=== PATIENT | female | born 1945 | race Caucasian/White ===

== ENCOUNTER 2017-05-07 18:22 | Emergency (ER) | payer OTHER ==
[2017-05-07 19:11] LABS: Absolute Lymphocytes (CBC) 0.5 K/uL (0.7-4.9); Absolute Monocytes 0.2 K/uL (0.1-1.3); Absolute Neutrophil 4.5 K/uL (1.8-8.0); Basophils % 0.3 % (0-1.3); Eosinophils % 3.7 % (0-4.4); Hematocrit 25.6 % (36.0-45.0); Lymphocytes % 8.8 % (15.3-44.8); MCH 21.8 pg (27.0-35.0); MCV 75.3 fL (80-100); MPV 8.7 fL (7.6-11.3)
[2017-05-07 19:24] LABS: Albumin 3.1 g/dL (3.2-5.5); Bilirubin Total 0.3 mg/dL (0.3-1.2); Protein, Total 6.5 g/dL (6.0-8.3)
[2017-05-07 19:47] LABS: Anisocytosis 2+; Blood Morphology Comment NOTED (NOT SEEN); Hypochromasia 1+; Platelet Estimate ADEQ; Rouleau NOTED; Urine White Blood Cell Casts OK
[2017-05-07] MEDS ORDERED: LIDOCAINE 1% MPF 5 ML VIAL ONE (20:03)
--- NOTE | 2017-05-07 20:18 | ER ---
Nurse's Notes [facility] Name: Dior Rao Age: 71 yrs Sex: Female : 1945 Arrival Date: 05/07/2017 Time: 18:23 Bed 8 Private MD: Diagnosis: Laceration of extensor muscle, fascia and tendon of other and unspecified finger at wrist and hand level Presentation: 05/07 18:34 Presenting complaint: Patient states: I may have had a seizure at home. My last one was lk1 April 11 here in the hospital. I have a cut on my left hand. Transition of care: patient was not received from another setting of care. Complicating Factors: There are no complicating factors for this patient. Onset of symptoms was May 07, 2017 at 17:45. Care prior to arrival: None. 18:34 Method Of Arrival: Ambulatory lk1 18:34 Acuity: JAMAR 3 lk1 Triage Assessment: 18:35 General: Appears in no apparent distress. Behavior is calm, cooperative, appropriate lk1 for age. Pain: Complains of pain in left hand Pain currently is 6 out of 10 on a pain scale. Historical: - Allergies: 18:35 Codeine; lk1 18:35 Fentanyl; lk1 18:35 Morphine; lk1 18:35 PENICILLINS; lk1 18:35 Phenergan; lk1 18:35 Demerol; lk1 - PMHx: 18:35 Anemia; COPD; Lupus; osteoarthritis; Pancreatitis; Pneumonia; Seizures; status lk1 epilepticus; - Immunization history:: Adult Immunizations up to date. - Social history:: Smoking status: Patient/guardian denies using tobacco. Screenin:40 Abuse screen: Denies threats or abuse. Denies injuries from another. Nutritional hb screening: No deficits noted. Tuberculosis screening: No symptoms or risk factors identified. Fall Risk Total Bowie Fall Scale indicates Low Risk Score (25-44 pts). Fall prevention measures have been instituted. Side Rails Up X 2 Frequent Obs/Assesments occuring Family Present and informed to notify staff if they need to leave bedside As available Patient and Family Educated on Fall Prevention Program and strategies. Assessment: 18:39 General: Appears in no apparent distress. Behavior is calm, cooperative. Pain: Pain hb currently is 2 out of 10 on a pain scale. Neuro: Level of Consciousness is awake, alert, obeys commands, Oriented to person, place, time, situation. Cardiovascular: Capillary refill < 3 seconds Patient's skin is warm and dry. Respiratory: Airway is patent Respiratory effort is even, unlabored, Respiratory pattern is regular, symmetrical, Breath sounds are clear bilaterally. GI: No signs and/or symptoms were reported involving the gastrointestinal system. : No signs and/or symptoms were reported regarding the genitourinary system. EENT: No signs and/or symptoms were reported regarding the EENT system. Derm: Skin is pink, warm \T\ dry. Musculoskeletal: Capillary refill < 3 seconds. Injury Description: Laceration sustained to left hand is clean, 0.5 to 2.5 cm long, not bleeding, was sustained 30-60 minutes ago. is bleeding a small amount. 19:35 Reassessment: No changes from previously documented assessment. Patient and/or family bb updated on plan of care and expected duration. Pain level reassessed. Patient is alert, oriented x 3, equal unlabored respirations, skin warm/dry/pink. pt resting quietly wet dressing in place to right hand. 20:29 Reassessment: Patient appears in no apparent distress at this time. Patient is alert, aa1 oriented x 3, equal unlabored respirations, skin warm/dry/pink. Discussed d/c \T\ f/u instructions with pt; denies questions or concerns at this time Patient denies pain at this time. Patient states feeling better. Vital Signs: 18:35 BP 170 / 87; Pulse 89; Resp 14; Temp 97.8(TE); Pulse Ox 96% on R/A; Weight 47.63 kg lk1 (R); Height 5 ft. 1 in. (154.94 cm) (R); Pain 6/10; 19:36 BP 201 / 86; Pulse 81; Resp 18 S; Pulse Ox 95% on R/A; bb 20:29 BP 188 / 82; Pulse 79; Resp 18; Pulse Ox 96% on R/A; Pain 0/10; aa1 18:35 Body Mass Index 19.84 (47.63 kg, 154.94 cm) lk1 ED Course: 18:23 Patient arrived in ED. as 18:35 Triage completed. lk1 18:36 Arm band placed on right wrist. lk1 18:39 Apple De Souza, RN is Primary Nurse. hb 18:41 Patient has correct armband on for positive identification. Bed in low position. Call hb light in reach. Side rails up X 1. 18:47 Rashi Parra MD is Attending Physician. tw4 19:02 Inserted saline lock: 20 gauge in right antecubital area, using aseptic technique. hb Blood collected. 19:23 Notified ED physician of a critical lab result(s). hgb of 7.4. fc 20:19 Dressings: Adaptic X 1; left hand 4X4s X 1; left hand. cc 20:20 CMP Sent. cc 20:20 CBC with Diff Sent. cc 20:29 No provider procedures requiring assistance completed. IV discontinued, intact, aa1 bleeding controlled, No redness/swelling at site. Pressure dressing applied. Administered Medications: 20:21 Drug: Potassium Chloride 40 mEq Route: PO; aa1 20:29 Follow up: Response: No adverse reaction; Medication administered at discharge. aa1 Outcome: 20:18 Discharge ordered by . tw4 20:29 Discharged to home via wheelchair, with significant other. aa1 20:29 Condition: good 20:29 Discharge instructions given to patient, significant other, Instructed on discharge instructions, follow up and referral plans. medication usage, Demonstrated understanding of instructions, follow-up care, medications, Prescriptions given X 1. 20:33 Patient left the ED. aa1 Signatures: Connie Bernstein RN RN aa1 Shala Melissa RN RN fc Martinez, Amelia as Liliam Sellers RN RN Melany Lee cc Iris Farmer RN RN [facility] Apple De Souza, Rashi Friedman RN, MD MD tw4
--- NOTE | 2017-05-07 20:18 | EDPHYS ---
Physician Documentation [facility] Name: Dior Rao Age: 71 yrs Sex: Female : 1945 Arrival Date: 05/07/2017 Time: 18:23 Bed 8 Private MD: ED Physician Rashi Parra HPI: 05/07 19:37 This 71 yrs old Female presents to ER via Ambulatory with complaints of tw4 Laceration To Hand. 19:37 The patient has a laceration related to: possible seizure occurred at home, and there tw4 are no complicating factors. The laceration(s) is(are) located on the dorsum of left hand. Onset: The symptoms/episode began/occurred today. Associated signs and symptoms: The patient has no apparent associated signs or symptoms. The patient has not experienced similar symptoms in the past. Historical: - Allergies: 18:35 Codeine; lk1 18:35 Fentanyl; lk1 18:35 Morphine; lk1 18:35 PENICILLINS; lk1 18:35 Phenergan; lk1 18:35 Demerol; lk1 - PMHx: 18:35 Anemia; COPD; Lupus; osteoarthritis; Pancreatitis; Pneumonia; Seizures; status lk1 epilepticus; - Immunization history:: Adult Immunizations up to date. - Social history:: Smoking status: Patient/guardian denies using tobacco. ROS: 19:37 Constitutional: Negative for fever, chills, and weight loss, Cardiovascular: Negative tw4 for chest pain, palpitations, and edema, Respiratory: Negative for shortness of breath, cough, wheezing, and pleuritic chest pain, Abdomen/GI: Negative for abdominal pain, nausea, vomiting, diarrhea, and constipation, Back: Negative for injury and pain. 19:37 MS/extremity: Positive for injury or acute deformity, laceration, Negative for abrasion, bite, contusion, decreased range of motion, puncture, rash, swelling, tenderness, tingling. Exam: 19:39 Constitutional: This is a well developed, well nourished patient who is awake, alert, tw4 and in no acute distress. Head/Face: Normocephalic, atraumatic. Chest/axilla: Normal chest wall appearance and motion. Nontender with no deformity. No lesions are appreciated. Cardiovascular: Regular rate and rhythm with a normal S1 and S2. No gallops, murmurs, or rubs. Normal PMI, no JVD. No pulse deficits. Respiratory: Lungs have equal breath sounds bilaterally, clear to auscultation and percussion. No rales, rhonchi or wheezes noted. No increased work of breathing, no retractions or nasal flaring. 19:39 Musculoskeletal/extremity: Extremities: noted in the dorsum of left hand: laceration, ROM: full active range of motion, full passive range of motion, limited active range of motion, Circulation is intact in all extremities. Vital Signs: 18:35 BP 170 / 87; Pulse 89; Resp 14; Temp 97.8(TE); Pulse Ox 96% on R/A; Weight 47.63 kg lk1 (R); Height 5 ft. 1 in. (154.94 cm) (R); Pain 6/10; 19:36 BP 201 / 86; Pulse 81; Resp 18 S; Pulse Ox 95% on R/A; bb 20:29 BP 188 / 82; Pulse 79; Resp 18; Pulse Ox 96% on R/A; Pain 0/10; aa1 18:35 Body Mass Index 19.84 (47.63 kg, 154.94 cm) lk1 Laceration: 20:10 Wound Repair of 3.0cm ( 1.2in ) subcutaneous laceration to dorsum of left hand. Distal tw4 neuro/vascular/tendon intact. Anesthesia: Local anesthetic administered with 2 mls of 1% lidocaine. Wound prep: Simple cleansing with betadine by nurse. Skin closed with 4-0 Prolene using interrupted sutures and sterile technique. Dressed with non-adherent dressing. Patient tolerated well. MDM: 18:47 Patient medically screened. tw4 19:39 Differential diagnosis: superficial laceration, tendon injury, vascular injury. Data tw4 reviewed: vital signs, nurses notes. Counseling: I had a detailed discussion with the patient and/or guardian regarding: the historical points, exam findings, and any diagnostic results supporting the discharge/admit diagnosis. 04 18:47 Order name: CBC with Diff tw4 05/07 18:47 Order name: CMP tw4 05/07 18:48 Order name: CBC with Automated Diff; Complete Time: 20:12 EDMS 05/07 18:48 Order name: Comprehensive Metabolic Panel; Complete Time: 20:12 EDMS 05/07 19:23 Order name: CBC Smear Scan; Complete Time: 20:12 [facility] 05/07 18:47 Order name: Saline Lock; Complete Time: 19:02 tw4 05/07 19:21 Order name: Dressing - Wound; Complete Time: 20:18 tw4 05/07 19:21 Order name: Gloves, Sterile; Complete Time: 19:47 tw4 05/07 19:21 Order name: Setup Suture Tray; Complete Time: 19:47 tw4 Administered Medications: 20:21 Drug: Potassium Chloride 40 mEq Route: PO; aa1 20:29 Follow up: Response: No adverse reaction; Medication administered at discharge. aa1 Disposition: 05/07/17 20:18 Discharged to Home. Impression: Laceration of extensor muscle, fascia and tendon of other and unspecified finger at wrist and hand level. - Condition is Stable. - Discharge Instructions: Laceration Care, Adult, [id number], Seizure Disorder, Child, Generalized Tonic-Clonic, Hypokalemia. - Prescriptions for Potassium Chloride 20 meq Oral Packet - take 1 packet by ORAL route once daily 1 packet in 6 (six) ounces of water or juice; Take after meal; 10 packet. - Medication Reconciliation Form, Thank You Letter, Antibiotic Education, Prescription Opioid Use form. - Follow up: Private Physician; When: As needed; Reason: Recheck today's complaints, Continuance of care, Re-evaluation by your physician. - Problem is an ongoing problem. - Symptoms have improved. Signatures: Dispatcher [employer] Connie Abbott, RN RN aa1 Iris Farmer RN RN lk1 Rashi Parra MD MD tw4
[2017-05-07] MEDS ORDERED: POTASSIUM CL SA 10 MEQ TAB PO ONE (20:38)
[2017-05-07 20:41] VITALS: TEMP 97.8
[2017-05-07 20:43] VITALS: BP 188/82; O2SAT 96
== END 2017-05-07 20:33 | disposition home or self-care (01) ==
LOC: ER 18:22
PROC: 0JQK0ZZ Repair Left Hand Subcutaneous Tissue and Fascia, Open Approach (ICD-10-PCS; principal; 2017-05-07)
DX: S66.328A Laceration of extensor muscle, fascia and tendon of other finger at wrist and hand level, initial encounter (principal); G40.909 Epilepsy, unspecified, not intractable, without status epilepticus; Z88.0 Allergy status to penicillin; Z88.5 Allergy status to narcotic agent; Z88.8 Allergy status to other drugs, medicaments and biological substances
CPT/HCPCS: 36415; 80053; 85025; 99284

== ENCOUNTER 2017-07-18 11:53 | Emergency (ER) | payer OTHER ==
--- OUTSIDE RECORDS SUMMARY | 2017-07-18 11:55 | XMS REPORT ---
:1945 Author Organization eClinicalWorks Care Team Providers Name Role Phone KahnKendall Provider Role Unavailable Allergies No Known Allergies Problems Problem Type Condition Code Onset Dates Condition Status Problem Lupus (systemic lupus M32.9 Active erythematosus) Problem Chronic back pain M54.9 Active Problem Degenerative joint disease M19.90 Active Problem COPD (chronic obstructive pulmonary J44.9 Active disease) Assessment COPD (chronic obstructive pulmonary J44.9 Active disease) Problem Rheumatoid arthritis M06.9 Active Assessment Chronic back pain M54.9 Active Assessment Osteoarthritis of multiple joints M15.9 Active Problem Hypertension I10 Active Problem Seizures R56.9 Active Problem Degeneration of lumbar or M51.37 Active lumbosacral intervertebral disc Problem Insomnia G47.00 Active Problem Chronic pancreatitis K86.1 Active Assessment CREST syndrome M34.1 Active Assessment Seizures R56.9 Active Assessment Anemia, chronic disease D63.8 Active Assessment Hypertension I10 Active Problem Rotator cuff tear arthropathy M12.819 Active Problem Osteoarthritis of multiple joints M15.9 Active Problem CREST syndrome M34.1 Active Problem Anxiety and depression F41.9 Active Assessment Rheumatoid arthritis M06.9 Active Problem Malabsorption syndrome K90.9 Active Problem Anemia, chronic disease D63.8 Active Medications Medication Code Code Instructions Start End Status Dosage System Date Date Creon [facility] 07885807731 6000 UNIT Active not Orally defined Zofran ND 33444306011 4 MG Orally Active not defined Alprazolam ND 73986140996 1 MG Orally Active 1 tablet Twice a day Ziac ND 13346014762 5-6.25 MG Active 1 tablet Orally Once a day Viberzi ND 64659687425 75 MG Orally Active 1 tablet Twice a day with food Zoloft ND 93063180294 100 MG Orally Active 1 tablet Once a day Zanaflex ND 34865886800 4 MG Orally Active 1 tablet Three times a as needed day Creon 5 NDC 0 Active not defined [place] [facility] 56957429487 10-325 MG Active 1 tablet Orally every 6 as needed hrs Doxycycline [facility] 58712465898 100 MG Orally Active 1 tablet Hyclate every 12 hrs Oxcarbazepine ND 34714893393 600 MG Orally Active 1 tablet Twice a day Keppra [facility] 33884109269 750 MG Orally Active 1 tablet Twice a day Folic Acid ND 93985518474 1 MG Orally Active 1 tablet Once a day Restoril ND 41776966807 30 MG Orally Active 1 capsule Once a day at bedtime as needed Anacin [facility] 22063913796 400-32 MG Active not Orally defined Trileptal [facility] 67948505446 600 MG Orally Active 1 tablet Twice a day Neurontin ND 10133909125 300 MG Orally Active 1 capsule Once a day before bedtime Diovan HCT [facility] 19576630491 80-12.5 MG Inactive 1 tablet Orally Once a day Amlodipine ND 99490691965 10 MG Orally Active 1 tablet Besylate Once a day Protonix [facility] 39467512933 20 MG Orally Active 1 tablet Once a day Ultram [facility] 74563226011 50 MG Orally Active 1 tablet every 6 hrs as needed Plaquenil ND 31869621889 200 MG Orally Active 1 tablet Once a day with food or milk Reglan [facility] 97578488985 5 MG Orally Active not defined Vimpat [facility] 40720764789 50 MG Orally Active 1 tablet Twice a day Methotrexate ND 41340375987 2.5 MG Orally Active not defined Results No Known Results Summary Purpose eClinicalWorks Submission
--- OUTSIDE RECORDS SUMMARY | 2017-07-18 11:55 | XMS REPORT ---
:1945 Author Organization eClinicalWorks Care Team Providers Name Role Phone KahnKendall Provider Role Unavailable Allergies No Known Allergies Problems Problem Type Condition Code Onset Dates Condition Status Problem Lupus (systemic lupus M32.9 Active erythematosus) Problem Chronic back pain M54.9 Active Problem Degenerative joint disease M19.90 Active Problem COPD (chronic obstructive pulmonary J44.9 Active disease) Assessment Seizures R56.9 Active Problem Rheumatoid arthritis M06.9 Active Assessment Chronic back pain M54.9 Active Assessment Osteoarthritis of multiple joints M15.9 Active Problem Hypertension I10 Active Problem Seizures R56.9 Active Problem Degeneration of lumbar or M51.37 Active lumbosacral intervertebral disc Problem Insomnia G47.00 Active Problem Chronic pancreatitis K86.1 Active Assessment Anemia, chronic disease D63.8 Active Assessment Hypertension I10 Active Assessment CREST syndrome M34.1 Active Assessment COPD (chronic obstructive pulmonary J44.9 Active disease) Problem Rotator cuff tear arthropathy M12.819 Active Problem Osteoarthritis of multiple joints M15.9 Active Problem CREST syndrome M34.1 Active Problem Anxiety and depression F41.9 Active Assessment Rheumatoid arthritis M06.9 Active Problem Malabsorption syndrome K90.9 Active Problem Anemia, chronic disease D63.8 Active Medications Medication Code Code Instructions Start End Status Dosage System Date Date Amlodipine ND 43785363293 10 MG Orally Active 1 tablet Besylate Once a day Zoloft ND 55879868470 100 MG Orally Active 1 tablet Once a day Alprazolam ND 82949857447 1 MG Orally Active 1 tablet Twice a day Creon ND 23130113477 6000 UNIT Active not Orally defined Ultram ND 62982612579 50 MG Orally Active 1 tablet every 6 hrs as needed Methotrexate ND 76126458533 2.5 MG Orally Active not defined Neurontin ND 20183983748 300 MG Orally Active 1 capsule Once a day before bedtime Viberzi [facility] 53729099599 75 MG Orally Active 1 tablet Twice a day with food Anacin [facility] 63961103633 400-32 MG Active not Orally defined Plaquenil ND 54459037325 200 MG Orally Active 1 tablet Once a day with food or milk Zofran [facility] 89850750223 4 MG Orally Active not defined Oxcarbazepine ND 51318377329 600 MG Orally Active 1 tablet Twice a day Keppra ND 96034353881 750 MG Orally Active 1 tablet Twice a day Zanaflex ND 91248969127 4 MG Orally Active 1 tablet Three times a as needed day Protonix [facility] 34624590402 20 MG Orally Active 1 tablet Once a day Ziac [facility] 88678387873 5-6.25 MG Active 1 tablet Orally Once a day Restoril ND 40812539296 30 MG Orally Active 1 capsule Once a day at bedtime as needed Folic Acid ND 79721816336 1 MG Orally Active 1 tablet Once a day Vimpat ND 27394741705 50 MG Orally Active 1 tablet Twice a day Creon 5 NDC 0 Active not defined Doxycycline [facility] 58947700110 100 MG Orally Active 1 tablet Hyclate every 12 hrs Reglan [facility] 18499199676 5 MG Orally Active not defined [place] [facility] 47182489702 10-325 MG Active 1 tablet Orally every 6 as needed hrs Results No Known Results Summary Purpose eClinicalWorks Submission
--- OUTSIDE RECORDS SUMMARY | 2017-07-18 11:55 | XMS REPORT ---
:1945 Author Organization eClinicalWorks Care Team Providers Name Role Phone Kendall Kahn Provider Role Unavailable Allergies No Known Allergies Problems Problem Type Condition Code Onset Dates Condition Status Problem Lupus (systemic lupus M32.9 Active erythematosus) Problem Chronic back pain M54.9 Active Problem Degenerative joint disease M19.90 Active Problem COPD (chronic obstructive pulmonary J44.9 Active disease) Problem Rheumatoid arthritis M06.9 Active Problem Hypertension I10 Active Problem Seizures R56.9 Active Problem Degeneration of lumbar or M51.37 Active lumbosacral intervertebral disc Problem Insomnia G47.00 Active Problem Chronic pancreatitis K86.1 Active Assessment Acute pain of left shoulder M25.512 Active Assessment Rotator cuff tear arthropathy M12.819 Active Problem Rotator cuff tear arthropathy M12.819 Active Problem Osteoarthritis of multiple joints M15.9 Active Problem CREST syndrome M34.1 Active Problem Anxiety and depression F41.9 Active Problem Malabsorption syndrome K90.9 Active Problem Anemia, chronic disease D63.8 Active Medications No Known Medications Results No Known Results Summary Purpose eClinicalWorks Submission
--- NOTE | 2017-07-18 13:06 | RAD REPORT ---
EXAM DESCRIPTION: CT - C Spine Wo Con - 07/18/2017 12:46 pm CLINICAL HISTORY: Persistent neck pain following fall 3 days earlier COMPARISON: CT trauma study May 2016 TECHNIQUE: Axial 2 mm thick images of the cervical spine were obtained with sagittal and coronal rec onstruction images generated and reviewed. All CT scans are performed using dose optimization technique as appropriate and may include automated exposure control or mA/KV adjustment according to patient size. FINDINGS: Cervical bodies C1-C6 are normal in height. No underlying subluxation abnormality. C5-6 de generative mineralization of the disc space. There is slight loss in disc height. The 20% wedge compr ession of C7 is similar to the examination from 1 year earlier. Posterior wall height is preserved. N o new finding from the prior study. Mastoid air cells are clear. No skull base fracture. Dense arterial tree calcifications are present. No gross deformity of the C1 ring. There is slight cortical irregularity at the posterior arch latera l mass junction on the left. Fracture at this site is not confirmed. C2 is fractured. There is a coronal oblique fracture plane that extends from the posterior body dens junction anterior and inferior. Dens is displaced 1 millimeter anterior relative to the body of C2. N o pathologic component. Prominent degenerative change with mineralization of the transverse ligament noted posterior to the dens. The dens anterior arch C1 degenerative changes are present. The C3-C6 levels show no identifiable fracture. Borderline or mild right foraminal stenosis at C3-4. Prominent bilateral facet degenerative change at C4-5 causing mild foraminal stenosis. Patient has ve ry severe left facet degenerative change at C5-6 and on the right at C6-7. These levels both have for aminal encroachment. No paraspinal mass or hematoma. Central canal detail is inherently limited on CT imaging. Bilateral carotid calcifications are presen t. No suspicious soft tissue mass. Findings telephoned to the referring clinician 12:58 p.m. IMPRESSION: C2 fracture. Coronal oblique fracture plane extends from the posterior dens body junctio n anteriorly and inferiorly into the body. There is 1 millimeter anterior subluxation of the dens rel ative to the body of C2. Slight cortical irregularity along the lateral mass posterior arch C1 junction. This is not definitiv e for fracture. C7 20% wedge compression deformity stable back to at least May 2016. Degenerative changes throughout the cervical spine not causing central spinal stenosis. There is mult ilevel foraminal stenosis.
[2017-07-18] MEDS ORDERED: HYDROMORPHONE HCL 1 MG/ML INJ ONE ×2 (13:18→14:30)
[2017-07-18] MEDS ORDERED: NA CHLORIDE 0.9% 1,000 ML ONE (13:19)
[2017-07-18 13:45] LABS: Potassium 3.4 mEq/L (3.6-5.0)
[2017-07-18 13:47] LABS: Absolute Lymphocytes (CBC) 0.5 K/uL (0.7-4.9); Absolute Monocytes 0.4 K/uL (0.1-1.3); Absolute Neutrophil 5.2 K/uL (1.8-8.0); Basophils % 0.8 % (0-1.3); Hematocrit 42.7 % (36.0-45.0); Lymphocytes % 8.4 % (15.3-44.8); MCH 29.4 pg (27.0-35.0); MCV 92.5 fL (80-100); MPV 9.2 fL (7.6-11.3); Monocytes % 6.2 % (3.3-12.3); RBC Red Blood Cell Count 4.62 M/uL (3.86-4.86)
--- NOTE | 2017-07-18 14:09 | EDPHYS ---
Physician Documentation [facility] Name: Dior Rao Age: 71 yrs Sex: Female : 1945 Arrival Date: 07/18/2017 Time: 11:55 Bed 19 Private MD: Femi [facility] ED Physician Tommy Colon HPI: 07/18 12:15 This 71 yrs old Female presents to ER via Wheelchair with complaints of Neck kav Pain, >24Hrs Old. 12:25 The patient or guardian complains of pain, that is acute. The symptoms are located on kav the occipital area and base of the skull. Onset: The symptoms/episode began/occurred acutely, 2 day(s) ago. Context: The problem was sustained at home, The neck injury/problem resulted from patient reports that she had an unwitnessed seizure approximately 2 days ago and hit the back of her head. her reports finding her on the floor and reports no LOC. Associated signs and symptoms: Pertinent positives: Pertinent negatives: fever, headache, nausea, vomiting. The pain does not radiate. Modifying factors: The symptoms are alleviated by nothing. the symptoms are aggravated by movement. Severity of symptoms: At their worst the symptoms were moderate, just prior to arrival. The patient has not experienced similar symptoms in the past. The patient has not recently seen a physician. 13:26 c/o pain at xiphoid process r/t fall 2 days ago? no bruising noted at site. kav Historical: - Allergies: 11:59 Codeine; aj 11:59 Demerol; aj 11:59 Fentanyl; aj 11:59 Morphine; aj 11:59 PENICILLINS; aj 11:59 Phenergan; aj - Home Meds: 11:59 amlodipine 10 mg tab 1 tab once daily [Active]; folic acid 1 mg Oral tab once daily aj [Active]; hydroxychloroquine 200 mg Oral tab 2 times per day [Active]; methotrexate sodium 25 mg/mL injection soln 0.4 mL once wkly [Active]; pantoprazole 40 mg Oral TbEC 1 tab once daily [Active]; prednisone 1 mg Oral tab 2 tabs once daily [Active]; valsartan 40 mg Oral tab once daily [Active]; 13:35 Lyons 7.5-325 mg oral tab 1 tab every 6 hours for Pain [Active]; Restoril Oral nightly tw2 [Active]; Vimpat 100 mg oral tab 1 tab 2 times per day [Active]; Keppra 750 mg Oral tab 1 tab 2 times per day [Active]; Xanax Oral 1 tab at night for Anxiety [Active]; Creon 36,000-114,000- 180,000 unit oral cpDR 1 cap 3 times per day [Active]; - PMHx: 11:59 Anemia; Lupus; osteoarthritis; Pancreatitis; Pneumonia; Seizures; aj 13:35 scardoma; raynaud disease; status epilepticus; tw2 - PSHx: 11:59 None; aj - Immunization history:: Adult Immunizations up to date. - Social history:: Smoking status: Patient/guardian denies using tobacco. - Ebola Screening: : Patient negative for fever greater than or equal to 101.5 degrees Fahrenheit, and additional compatible Ebola Virus Disease symptoms Patient denies exposure to infectious person Patient denies travel to an Ebola-affected area in the 21 days before illness onset No symptoms or risks identified at this time. - Family history:: not pertinent. - Hospitalizations: : No recent hospitalization is reported. - History obtained from: . ROS: 12:28 Constitutional: Negative for fever, chills, and weight loss, Eyes: Negative for injury, kav pain, redness, and discharge, ENT: Negative for injury, pain, and discharge, Neck: Negative for injury, pain, and swelling, Cardiovascular: Negative for chest pain, palpitations, and edema, Respiratory: Negative for shortness of breath, cough, wheezing, and pleuritic chest pain, Abdomen/GI: Negative for abdominal pain, nausea, vomiting, diarrhea, and constipation, Back: Negative for injury and pain, Skin: Negative for injury, rash, and discoloration, Neuro: Negative for headache, weakness, numbness, tingling, and seizure, Psych: Negative for depression, anxiety, suicide ideation, homicidal ideation, and hallucinations, Allergy/Immunology: Negative for hives, rash, and allergies, Endocrine: Negative for neck swelling, polydipsia, polyuria, polyphagia, and marked weight changes, Hematologic/Lymphatic: Negative for swollen nodes, abnormal bleeding, and unusual bruising. 12:28 MS/extremity: Positive for pain, of the occipital area and base of the skull. 13:34 Neck: Positive for pain with movement, pain at rest, bony tenderness, of the base of kav the skull. Exam: 12:28 Constitutional: This is a well developed, well nourished patient who is awake, alert, kav and in no acute distress. Eyes: Pupils equal round and reactive to light, extra-ocular motions intact. Lids and lashes normal. Conjunctiva and sclera are non-icteric and not injected. Cornea within normal limits. Periorbital areas with no swelling, redness, or edema. ENT: Nares patent. No nasal discharge, no septal abnormalities noted. Tympanic membranes are normal and external auditory canals are clear. Oropharynx with no redness, swelling, or masses, exudates, or evidence of obstruction, uvula midline. Mucous membranes moist. Neck: Trachea midline, no thyromegaly or masses palpated, and no cervical lymphadenopathy. Supple, full range of motion without nuchal rigidity, or vertebral point tenderness. No Meningismus. Chest/axilla: Normal chest wall appearance and motion. Nontender with no deformity. No lesions are appreciated. Cardiovascular: Regular rate and rhythm with a normal S1 and S2. No gallops, murmurs, or rubs. Normal PMI, no JVD. No pulse deficits. Respiratory: Lungs have equal breath sounds bilaterally, clear to auscultation and percussion. No rales, rhonchi or wheezes noted. No increased work of breathing, no retractions or nasal flaring. Abdomen/GI: Soft, non-tender, with normal bowel sounds. No distension or tympany. No guarding or rebound. No evidence of tenderness throughout. Back: No spinal tenderness. No costovertebral tenderness. Full range of motion. Skin: Warm, dry with normal turgor. Normal color with no rashes, no lesions, and no evidence of cellulitis. MS/ Extremity: Pulses equal, no cyanosis. Neurovascular intact. Full, normal range of motion. Neuro: Awake and alert, GCS 15, oriented to person, place, time, and situation. Cranial nerves II-XII grossly intact. Motor strength 5/5 in all extremities. Sensory grossly intact. Cerebellar exam normal. Normal gait. Psych: Awake, alert, with orientation to person, place and time. Behavior, mood, and affect are within normal limits. 12:28 Head/face: Noted is 12:31 Head/Face: Normocephalic, atraumatic. kav 12:31 Neck: External neck: is normal, no acute changes, C-spine: appears grossly normal, no acute changes. 13:34 Neuro: Orientation: is normal, appropriate for stated age, no acute changes, per kav family, to person, place \T\ time. Mentation: is normal, appropriate for stated age, no acute changes, responsive to voice lucid, able to follow commands, Memory: is normal, appropriate for stated age, no acute changes, Cranial nerves: grossly normal, is grossly normal based on the patient's age, no acute changes, Cerebellar function: is grossly normal, is grossly normal based on the patient's age, no acute changes, Romberg testing is negative, normal finger to nose testing, heel to haines testing is normal, able to perform alternating rapid hand movements, Motor: is normal, Sensation: is normal, no obvious gross deficits, appropriate no acute changes, Gait: unable to assess, Deep tendon reflexes are normal, Babinski testing is normal, seizure activity, is not displayed by the patient. Vital Signs: 11:59 BP 174 / 102; Pulse 94; Resp 16; Temp 98.4; Pulse Ox 94% on R/A; Weight 44.45 kg; aj Height 5 ft. 1 in. (154.94 cm); 12:30 BP 143 / 73; Pulse 80; Resp 17; Pulse Ox 92% on R/A; mh5 13:39 BP 169 / 73; Pulse 84; Resp 17; Pulse Ox 94% on R/A; tw2 14:46 BP 141 / 72; Pulse 76; Resp 13; Pulse Ox 94% on R/A; tw2 15:29 BP 157 / 83; Pulse 75; Resp 14; Pulse Ox 94% ; jl7 11:59 Body Mass Index 18.52 (44.45 kg, 154.94 cm) aj MDM: 12:15 Medical screening is not applicable. kav 13:27 Data reviewed: vital signs, nurses notes, radiologic studies, CT scan, fracture C2. kav 13:27 ED course: transfer initiated to [facility] to neurosurgery. kav 14:08 Data reviewed: lab test result(s), cardiac enzymes, electrolytes, urinalysis. ka 07/18 13:16 Order name: Basic Metabolic Panel; Complete Time: 14:09 kav 07/18 14:09 Interpretation: Normal except: K 3.4; GLUC 138; GFR 72. 07/18 13:16 Order name: CBC with Diff; Complete Time: 14:33 [facility] 07/18 14:33 Interpretation: Normal except: MCV 92.5; MCH 29.4; MCHC 31.8; RDW 24.8; LOUIS% 82.6; LYM% kav 8.4; LYMA 0.5. 07/18 12:41 Order name: C Spine Wo Con; Complete Time: 13:20 EDMS 07/18 13:25 Interpretation: Abnormal. 07/18 13:16 Order name: Creatinine for Radiology; Complete Time: 14:09 [facility] 07/18 14:09 Interpretation: Within normal limits. 07/18 14:39 Order name: Urine Dipstick--Ancillary (enter results); Complete Time: 14:50 bd 07/18 14:50 Interpretation: Normal except: USPGR >1.030. 07/18 13:11 Order name: C-Collar; Complete Time: 13:11 tw2 07/18 13:16 Order name: Labs collected and sent; Complete Time: 13:29 07/18 13:16 Order name: Urine Dipstick-Ancillary (obtain specimen); Complete Time: 14:18 [facility] 07/18 13:16 Order name: CXR XRAY: pt reports chest pain r/t fall; Complete Time: 15:14 07/18 15:14 Interpretation: No acute disease. 07/18 13:29 Order name: Serrano; Complete Time: 14:01 tw2 Administered Medications: 13:25 Drug: Dilaudid 1 mg Route: IVP; Site: right antecubital; tw2 14:01 Follow up: Response: No adverse reaction; Pain is decreased tw2 13:29 Drug: NS 0.9% 1000 ml Route: IV; Rate: 125 ml/hr; Site: right antecubital; tw2 15:30 Follow up: IV Status: Completed infusion rk2 15:30 Follow up: Response: No adverse reaction; IV Status: Completed infusion rk2 14:28 Drug: Dilaudid 1 mg Route: IVP; Site: right antecubital; tw2 15:30 Follow up: Response: No adverse reaction rk2 15:26 Drug: Dilaudid 0.5 mg Route: IVP; Site: right antecubital; rk2 15:31 Follow up: Response: Give before transfer rk2 Disposition: 16:09 Co-signature as Attending Physician, Tommy Colon MD I agree with the assessment and kdr plan of care. Disposition: 07/18/17 14:08 Transfer ordered to [facility]. Diagnosis is Fracture of second cervical vertebra. - Reason for transfer: Higher level of care. - Accept[facility]. - Condition is Stable. - Problem is new. - Symptoms have improved. Signatures: Dispatcher [employer] EDMS Milagro Carney, RN RN Tommy Shelby MD MD kdr Tuyet Patel, TOOLING ENGINEER TOOLING ENGINEER Anitha Stanton RN RN tw2 Kacey Ackerman RN RN rk2 Corrections: (The following items were deleted from the chart) 12:41 12:25 Head Brain Wo Cont+CT.RAD.BRZ ordered. [facility] 13:36 11:59 Home Meds: Lyons 10-325 mg Oral tab 1 tab as needed; [facility] 13:36 11:59 Home Meds: Restoril Oral; [facility] 13:36 11:59 PMHx: COPD; [facility] 15:33 14:08 07/18/2017 14:08 Transfer ordered to [facility]. rk2 Diagnosis is Fracture of second cervical vertebra. Reason for transfer: Higher level of care. Accepting physician is [facility]. Condition is Stable. Problem is new. Symptoms have improved. kagloria
--- NOTE | 2017-07-18 14:09 | ER ---
Nurse's Notes [facility] Name: Dior Rao Age: 71 yrs Sex: Female : 1945 Arrival Date: 07/18/2017 Time: 11:55 Bed 19 Private MD: Kendall Kahn Diagnosis: Fracture of second cervical vertebra Presentation: 07/18 11:57 Presenting complaint: Patient states: Reports neck pain that started after falling aj during seizure 3 days ago. Transition of care: patient was not received from another setting of care. Onset of symptoms was July 16, 2017. Risk Assessment: Do you want to hurt yourself or someone else? Patient reports no desire to harm self or others. Care prior to arrival: None. 11:57 Method Of Arrival: Wheelchair aj 11:57 Acuity: JAMAR 3 aj 12:07 Initial Sepsis Screen: Does the patient meet any 2 criteria? No. Patient's initial tw2 sepsis screen is negative. Does the patient have a suspected source of infection? No. Patient's initial sepsis screen is negative. Triage Assessment: 11:59 General: Appears in no apparent distress. comfortable, Behavior is calm, cooperative, aj appropriate for age. Pain: Complains of pain in back of neck. Neuro: Level of Consciousness is awake, alert, obeys commands, Oriented to person, place, time, situation, Appropriate for age. Respiratory: Airway is patent Respiratory effort is even, unlabored, Respiratory pattern is regular, symmetrical. Derm: Skin is intact, is healthy with good turgor, Skin is pink, warm \T\ dry. normal. Musculoskeletal: Reports pain in back of neck. Historical: - Allergies: 11:59 Codeine; aj 11:59 Demerol; aj 11:59 Fentanyl; aj 11:59 Morphine; aj 11:59 PENICILLINS; aj 11:59 Phenergan; aj - Home Meds: 11:59 amlodipine 10 mg tab 1 tab once daily [Active]; folic acid 1 mg Oral tab once daily aj [Active]; hydroxychloroquine 200 mg Oral tab 2 times per day [Active]; methotrexate sodium 25 mg/mL injection soln 0.4 mL once wkly [Active]; pantoprazole 40 mg Oral TbEC 1 tab once daily [Active]; prednisone 1 mg Oral tab 2 tabs once daily [Active]; valsartan 40 mg Oral tab once daily [Active]; 13:35 [place] 7.5-325 mg oral tab 1 tab every 6 hours for Pain [Active]; Restoril Oral nightly tw2 [Active]; Vimpat 100 mg oral tab 1 tab 2 times per day [Active]; Keppra 750 mg Oral tab 1 tab 2 times per day [Active]; Xanax Oral 1 tab at night for Anxiety [Active]; Creon 36,000-114,000- 180,000 unit oral cpDR 1 cap 3 times per day [Active]; - PMHx: 11:59 Anemia; Lupus; osteoarthritis; Pancreatitis; Pneumonia; Seizures; aj 13:35 scardoma; raynaud disease; status epilepticus; tw2 - PSHx: 11:59 None; aj - Immunization history:: Adult Immunizations up to date. - Social history:: Smoking status: Patient/guardian denies using tobacco. - Ebola Screening: : Patient negative for fever greater than or equal to 101.5 degrees Fahrenheit, and additional compatible Ebola Virus Disease symptoms Patient denies exposure to infectious person Patient denies travel to an Ebola-affected area in the 21 days before illness onset No symptoms or risks identified at this time. - Family history:: not pertinent. - Hospitalizations: : No recent hospitalization is reported. - History obtained from: . Screenin:07 Abuse screen: Denies threats or abuse. Nutritional screening: No deficits noted. tw2 Tuberculosis screening: No symptoms or risk factors identified. Fall Risk None identified. Assessment: 12:07 General: Appears in no apparent distress. slender, well groomed, Behavior is calm, tw2 cooperative, appropriate for age. Pain: Complains of pain in back of neck. Neuro: Level of Consciousness is awake, alert, obeys commands, Oriented to person, place, time, situation. Cardiovascular: Denies chest pain, shortness of breath, Heart tones S1 S2 Capillary refill < 3 seconds Patient's skin is warm and dry. Respiratory: Airway is patent Respiratory effort is even, unlabored, Respiratory pattern is regular, symmetrical, Breath sounds are clear bilaterally. GI: No signs and/or symptoms were reported involving the gastrointestinal system. Abdomen is flat, Bowel sounds present X 4 quads. : No signs and/or symptoms were reported regarding the genitourinary system. EENT: No signs and/or symptoms were reported regarding the EENT system. Derm: Skin is intact, is healthy with good turgor, Skin temperature is warm. Musculoskeletal: Range of motion: intact in all extremities. 12:40 Reassessment: pt to CT at this time via stretcher. tw2 13:40 Reassessment: Patient appears in no apparent distress at this time. No changes from tw2 previously documented assessment. Patient and/or family updated on plan of care and expected duration. Pain level reassessed. Patient is alert, oriented x 3, equal unlabored respirations, skin warm/dry/pink. pt remains lying supine at this time, with C-collar in place. 14:22 Reassessment: Patient and/or family updated on plan of care and expected duration. Pain tw2 level reassessed. Patient is alert, oriented x 3, equal unlabored respirations, skin warm/dry/pink. pt c/o pain, provider notified. 14:47 Reassessment: Patient appears in no apparent distress at this time. Patient and/or tw2 family updated on plan of care and expected duration. Pain level reassessed. Patient is alert, oriented x 3, equal unlabored respirations, skin warm/dry/pink. 15:20 Reassessment: EMS at bedside to transfer pt, pt c/o increased pain, provider [email or web address] notified, see MAR for orders. Vital Signs: 11:59 BP 174 / 102; Pulse 94; Resp 16; Temp 98.4; Pulse Ox 94% on R/A; Weight 44.45 kg; aj Height 5 ft. 1 in. (154.94 cm); 12:30 BP 143 / 73; Pulse 80; Resp 17; Pulse Ox 92% on R/A; mh5 13:39 BP 169 / 73; Pulse 84; Resp 17; Pulse Ox 94% on R/A; tw2 14:46 BP 141 / 72; Pulse 76; Resp 13; Pulse Ox 94% on R/A; tw2 15:29 BP 157 / 83; Pulse 75; Resp 14; Pulse Ox 94% ; jl7 11:59 Body Mass Index 18.52 (44.45 kg, 154.94 cm) ED Course: 11:55 Patient arrived in ED. mr 11:55 Kendall Kahn, DO is Private Physician. mr 11:58 Triage completed. aj 11:59 Arm band placed on left wrist. Patient placed in an exam room. aj 12:06 Anitha Darby, SUMANTH is Primary Nurse. tw2 12:06 Bed in low position. Call light in reach. Adult w/ patient. Pulse ox on. NIBP on. tw2 Pillow given. 12:12 No provider procedures requiring assistance completed. tw2 12:15 [facility]. kav 12:15 Tommy Colon MD is Attending Physician. kav 12:46 C Spine Wo Con In Process Unspecified. EDMS 13:00 Rigid cervical collar applied and checked by physician. jl7 13:20 Inserted saline lock: 22 gauge in right antecubital area, using aseptic technique. tw2 Blood collected. 13:54 Serrano cath inserted, using sterile technique, 18 Fr., by wa, balloon inflated, to tw2 gravity drainage, urine specimen collected. returned eduarda urine. Patient tolerated well. 13:57 X-ray completed. Portable x-ray completed in exam room. Patient tolerated procedure jb2 well. 14:00 CXR XRAY: pt reports chest pain r/t fall In Process Unspecified. EDMS 14:20 Report given to SUMANTH Ross at [facility]. tw2 14:50 Report given to SUMANTH Erazo. tw2 15:32 Patient transferred, IV remains in place. rk2 Administered Medications: 13:25 Drug: Dilaudid 1 mg Route: IVP; Site: right antecubital; tw2 14:01 Follow up: Response: No adverse reaction; Pain is decreased tw2 13:29 Drug: NS 0.9% 1000 ml Route: IV; Rate: 125 ml/hr; Site: right antecubital; tw2 15:30 Follow up: IV Status: Completed infusion rk2 15:30 Follow up: Response: No adverse reaction; IV Status: Completed infusion rk2 14:28 Drug: Dilaudid 1 mg Route: IVP; Site: right antecubital; tw2 15:30 Follow up: Response: No adverse reaction rk2 15:26 Drug: Dilaudid 0.5 mg Route: IVP; Site: right antecubital; rk2 15:31 Follow up: Response: Give before transfer rk2 Outcome: 14:08 ER care complete, transfer ordered by . kav 15:32 Transferred by ground EMS rk2 15:32 Condition: good 15:32 Instructed on the need for transfer. 15:33 Patient left the ED. rk2 Signatures: Dispatcher [employer] Milagro Ni RN RN Tuyet Morrison, Chloe Berkowitz Joao Marinsse jb2 Anitha Darby RN RN tw2 Chloe Hernandez [facility] Wesley Wilkinson RN RN jl7 Kacey Ackerman RN RN rk2 Corrections: (The following items were deleted from the chart) 13:36 11:59 Home Meds: Claremore 10-325 mg Oral tab 1 tab as needed; [facility] 13:36 11:59 Home Meds: Restoril Oral; [facility] 13:36 11:59 PMHx: COPD; [facility]
[2017-07-18 14:47] LABS: Urine Blood NEGATIVE (NEG); Urine Glucose NEGATIVE (NEG); Urine Protein TRACE (NEG); Urine Specific Gravity >1.030 (1.005-1.030); Urine pH 6.5 (5.0-7.0)
--- NOTE | 2017-07-18 15:09 | RAD REPORT ---
EXAM DESCRIPTION: RAD - Chest Single View - 07/18/2017 2:08 pm CLINICAL HISTORY: Chest pain, history of fall 3 days earlier COMPARISON: May 2016 TECHNIQUE: AP portable chest image was obtained 1347 hours . FINDINGS: Prominent interstitial fibrotic pattern is present with the baseline pattern similar to th e comparison. No focal mass or consolidation. Trachea is midline. Heart and vasculature are normal. N o pneumothorax or pulmonary contusion. No pleural blood or fluid collection. No gross rib deformity s een. No acute aortic findings suspected. IMPRESSION: No pulmonary contusion or pneumothorax. No displaced rib fracture or gross bone deformity on portable supine examination.
[2017-07-18] MEDS ORDERED: HYDROMORPHONE HCL 0.5 MG/0.5 ML INJ ONE (15:25)
[2017-07-18 15:45] VITALS: TEMP 98.4
[2017-07-18 15:47] VITALS: O2SAT 94
[2017-07-18 15:49] VITALS: BP 157/83
== END 2017-07-18 15:33 | disposition short-term general hospital (02) ==
LOC: ER 11:53
DX: S12.100A Unspecified displaced fracture of second cervical vertebra, initial encounter for closed fracture (principal); X58.XXXA Exposure to other specified factors, initial encounter; Y93.89 Activity, other specified; Y92.009 Unspecified place in unspecified non-institutional (private) residence as the place of occurrence of the external cause; G40.909 Epilepsy, unspecified, not intractable, without status epilepticus; Z88.0 Allergy status to penicillin; Z88.5 Allergy status to narcotic agent; Z88.6 Allergy status to analgesic agent; Z88.8 Allergy status to other drugs, medicaments and biological substances
CPT/HCPCS: 36415; 51702; 71045; 72125; 80048; 81003; 85025; 96361; 96374; 99285; J1170 ×3; J7030

== ENCOUNTER 2017-08-21 13:47 | Emergency (ER) | payer OTHER ==
--- OUTSIDE RECORDS SUMMARY | 2017-08-21 13:49 | XMS REPORT ---
[...] End Status Dosage System Date Date Creon [facility] 90759260618 6000 UNIT Active not Orally defined Zofran ND 08027433618 4 MG Orally Active not defined Alprazolam ND 58760540836 1 MG Orally Active 1 tablet Twice a day Ziac ND 70651431587 5-6.25 MG Active 1 tablet Orally Once a day Viberzi ND 20665402238 75 MG Orally Active 1 tablet Twice a day with food Zoloft ND 82027444582 100 MG Orally Active 1 tablet Once a day Zanaflex ND 98160260446 4 MG Orally Active 1 tablet Three times a as needed day Creon 5 NDC 0 Active not defined [place] [facility] 13948090863 10-325 MG Active 1 tablet Orally every 6 as needed hrs Doxycycline [facility] 31762277918 100 MG Orally Active 1 tablet Hyclate every 12 hrs Oxcarbazepine ND 50912524965 600 MG Orally Active 1 tablet Twice a day Keppra [facility] 18183983950 750 MG Orally Active 1 tablet Twice a day Folic Acid ND 32304445716 1 MG Orally Active 1 tablet Once a day Restoril ND 33029732321 30 MG Orally Active 1 capsule Once a day at bedtime as needed Anacin [facility] 82590679330 400-32 MG Active not Orally defined Trileptal [facility] 30669802768 600 MG Orally Active 1 tablet Twice a day Neurontin ND 51474743770 300 MG Orally Active 1 capsule Once a day before bedtime Diovan HCT [facility] 95674052996 80-12.5 MG Inactive 1 tablet Orally Once a day Amlodipine ND 44892354614 10 MG Orally Active 1 tablet Besylate Once a day Protonix [facility] 24822435117 20 MG Orally Active 1 tablet Once a day Ultram [facility] 90382368616 50 MG Orally Active 1 tablet every 6 hrs as needed Plaquenil ND 41445393746 200 MG Orally Active 1 tablet Once a day with food or milk Reglan [facility] 13357615015 5 MG Orally Active not defined Vimpat [facility] 85574031716 50 MG Orally Active 1 tablet Twice a day Methotrexate ND 08501403635 2.5 MG Orally Active not defined Results No Known Results Summary Purpose eClinicalWorks Submission
--- OUTSIDE RECORDS SUMMARY | 2017-08-21 13:49 | XMS REPORT ---
[...] Status Dosage System Date Date Amlodipine ND 78637701821 10 MG Orally Active 1 tablet Besylate Once a day Zoloft ND 70088804908 100 MG Orally Active 1 tablet Once a day Alprazolam ND 15974089485 1 MG Orally Active 1 tablet Twice a day Creon ND 47649486505 6000 UNIT Active not Orally defined Ultram ND 32252794844 50 MG Orally Active 1 tablet every 6 hrs as needed Methotrexate ND 10235128048 2.5 MG Orally Active not defined Neurontin ND 77991463381 300 MG Orally Active 1 capsule Once a day before bedtime Viberzi [facility] 54804332135 75 MG Orally Active 1 tablet Twice a day with food Anacin [facility] 08400357602 400-32 MG Active not Orally defined Plaquenil ND 85332369718 200 MG Orally Active 1 tablet Once a day with food or milk Zofran [facility] 82091317649 4 MG Orally Active not defined Oxcarbazepine ND 97549038238 600 MG Orally Active 1 tablet Twice a day Keppra ND 52866797303 750 MG Orally Active 1 tablet Twice a day Zanaflex ND 23794211657 4 MG Orally Active 1 tablet Three times a as needed day Protonix [facility] 33457998549 20 MG Orally Active 1 tablet Once a day Ziac [facility] 42808343784 5-6.25 MG Active 1 tablet Orally Once a day Restoril ND 48885223907 30 MG Orally Active 1 capsule Once a day at bedtime as needed Folic Acid ND 88767967221 1 MG Orally Active 1 tablet Once a day Vimpat ND 05834035459 50 MG Orally Active 1 tablet Twice a day Creon 5 NDC 0 Active not defined Doxycycline [facility] 50462465030 100 MG Orally Active 1 tablet Hyclate every 12 hrs Reglan [facility] 04972821475 5 MG Orally Active not defined [place] [facility] 92859098162 10-325 MG Active 1 tablet Orally every 6 as needed hrs Results No Known Results Summary Purpose eClinicalWorks Submission
--- OUTSIDE RECORDS SUMMARY | 2017-08-21 13:49 | XMS REPORT ---
[...] Active Problem Chronic pancreatitis K86.1 Active Assessment Abscess of thumb, right L02.511 Active Problem Rotator cuff tear arthropathy M12.819 Active Problem Osteoarthritis of multiple joints M15.9 Active Problem CREST syndrome M34.1 Active Problem Anxiety and depression F41.9 Active Problem Malabsorption syndrome K90.9 Active Problem Anemia, chronic disease D63.8 Active Medications Medication Code Code Instructions Start End Status Dosage System Date Date Creon [facility] 65847416063 6000 UNIT Active not Orally defined Anacin [facility] 67388819895 400-32 MG Active not Orally defined Restoril ND 77793565825 30 MG Orally Active 1 capsule Once a day at bedtime as needed Alprazolam ND 12604054288 1 MG Orally Active 1 tablet Twice a day Vimpat ND 51894447935 50 MG Orally Active 1 tablet Twice a day Bactrim DS ND 81299518691 800-160 MG July 26August Active 1 tablet Orally Twice a 2017 Ziac ND 24582471021 5-6.25 MG Active 1 tablet Orally Once a day Ultram ND 36037901862 50 MG Orally Active 1 tablet every 6 hrs as needed Doxycycline ND 92327643129 100 MG Orally Active 1 tablet Hyclate every 12 hrs Reglan ND 67829756812 5 MG Orally Active not defined Neurontin ND 82000325669 300 MG Orally Active 1 capsule Once a day before bedtime [place] [facility] 21643434538 10-325 MG Active 1 tablet Orally every 6 as needed hrs Doxycycline ND 05830455170 100 MG Orally July 26August Active 1 capsule Monohydrate Twice a day 2017 Keppra [facility] 83805973966 750 MG Orally Active 1 tablet Twice a day Creon 5 ND 0 Active not defined Zofran [facility] 60267393501 4 MG Orally Active not defined Amlodipine [facility] 26864389589 10 MG Orally Active 1 tablet Besylate Once a day Viberzi [facility] 83879535721 75 MG Orally Active 1 tablet Twice a day with food Zoloft [facility] 11753637879 100 MG Orally Active 1 tablet Once a day Folic Acid [facility] 37231614042 1 MG Orally Active 1 tablet Once a day Oxcarbazepine [facility] 55927498507 600 MG Orally Active 1 tablet Twice a day Plaquenil [facility] 23263672712 200 MG Orally Active 1 tablet Once a day with food or milk Zanaflex [facility] 89644827153 4 MG Orally Active 1 tablet Three times a as needed day Protonix [facility] 83820194466 20 MG Orally Active 1 tablet Once a day Methotrexate [facility] 38330666778 2.5 MG Orally Active not defined Results No Known Results Summary Purpose eClinicalWorks Submission
[2017-08-21] MEDS ORDERED: HYDROCODONE/APAP 10/325 TAB ONE (15:31)
--- NOTE | 2017-08-21 16:29 | EDPHYS ---
Physician Documentation [facility] Name: Dior Rao Age: 72 yrs Sex: Female : 1945 Arrival Date: 08/21/2017 Time: 13:51 Bed 20 Private MD: Femi [facility] ED Physician Darron Santiago HPI: 08/21 16:25 This 72 yrs old Female presents to ER via Ambulatory with complaints of Neck gs Pain, <24hrs Old - FROM PREVIOUS INJURY. 16:25 The patient or guardian complains of pain, that is chronic. The symptoms are located at gs the C3 and C4. Onset: The symptoms/episode began/occurred 1 month(s) ago. Context: cervical fracture. Associated signs and symptoms: Pertinent negatives:. 16:37 Modifying factors: the symptoms are aggravated by movement. Severity of symptoms: At gs their worst the symptoms were moderate, in the emergency department the symptoms are unchanged. The patient has experienced similar episodes in the past, a few times. Historical: - Allergies: 14:02 Codeine; hj 14:02 Demerol; hj 14:02 Fentanyl; hj 14:02 Morphine; hj 14:02 PENICILLINS; hj 14:02 Phenergan; hj - Home Meds: 14:02 amlodipine 10 mg tab 1 tab once daily [Active]; Creon 36,000-114,000- 180,000 unit Oral hj cpDR 1 cap 3 times per day [Active]; folic acid 1 mg Oral tab once daily [Active]; hydroxychloroquine 200 mg Oral tab 2 times per day [Active]; Keppra 750 mg Oral tab 1 tab 2 times per day [Active]; methotrexate sodium 25 mg/mL injection soln 0.4 mL once wkly [Active]; [place] 7.5-325 mg Oral tab 1 tab every 6 hours for Pain [Active]; pantoprazole 40 mg Oral TbEC 1 tab once daily [Active]; prednisone 1 mg Oral tab 2 tabs once daily [Active]; Restoril Oral nightly [Active]; valsartan 40 mg Oral tab once daily [Active]; Vimpat 100 mg Oral tab 1 tab 2 times per day [Active]; Xanax Oral 1 tab AT NIGHT for Anxiety [Active]; - PMHx: 14:02 Anemia; Lupus; osteoarthritis; Pancreatitis; Pneumonia; raynaud disease; scardoma; hj Seizures; status epilepticus; - PSHx: 14:02 None; hj 15:04 abd sx (Pancreas removed, partial removal of stomach); aa5 - Immunization history:: Adult Immunizations up to date. - Social history:: Smoking status: Patient/guardian denies using tobacco, Patient/guardian denies using alcohol. - Ebola Screening: : Patient negative for fever greater than or equal to 101.5 degrees Fahrenheit, and additional compatible Ebola Virus Disease symptoms Patient denies exposure to infectious person Patient denies travel to an Ebola-affected area in the 21 days before illness onset. ROS: 16:37 All other systems are negative. gs Exam: 16:37 Head/Face: Normocephalic, atraumatic. Eyes: Pupils equal round and reactive to light, gs extra-ocular motions intact. Lids and lashes normal. Conjunctiva and sclera are non-icteric and not injected. Cornea within normal limits. Periorbital areas with no swelling, redness, or edema. ENT: Nares patent. No nasal discharge, no septal abnormalities noted. Tympanic membranes are normal and external auditory canals are clear. Oropharynx with no redness, swelling, or masses, exudates, or evidence of obstruction, uvula midline. Mucous membranes moist. Chest/axilla: Normal chest wall appearance and motion. Nontender with no deformity. No lesions are appreciated. Cardiovascular: Regular rate and rhythm with a normal S1 and S2. No gallops, murmurs, or rubs. Normal PMI, no JVD. No pulse deficits. Respiratory: Lungs have equal breath sounds bilaterally, clear to auscultation and percussion. No rales, rhonchi or wheezes noted. No increased work of breathing, no retractions or nasal flaring. Abdomen/GI: Soft, non-tender, with normal bowel sounds. No distension or tympany. No guarding or rebound. No evidence of tenderness throughout. Back: No spinal tenderness. No costovertebral tenderness. Full range of motion. Skin: Warm, dry with normal turgor. Normal color with no rashes, no lesions, and no evidence of cellulitis. MS/ Extremity: Pulses equal, no cyanosis. Neurovascular intact. Full, normal range of motion. Neuro: Awake and alert, GCS 15, oriented to person, place, time, and situation. Cranial nerves II-XII grossly intact. Motor strength 5/5 in all extremities. Sensory grossly intact. Cerebellar exam normal. Normal gait. 16:37 Constitutional: The patient appears alert, awake. 16:37 Neck: External neck: deformity absent. Vital Signs: 14:03 BP 184 / 92; Pulse 94; Resp 18; Temp 98.2(O); Pulse Ox 99% on R/A; Weight 44.45 kg; hj Height 5 ft. 0 in. (152.40 cm); Pain 10/10; 14:03 Body Mass Index 19.14 (44.45 kg, 152.40 cm) hj MDM: 14:28 Patient medically screened. gs 16:37 Differential diagnosis: C-Spine Fracture Cervical Disc Herniation Cervical Raiculopathy gs chronic pain. Data reviewed: vital signs, nurses notes. 16:37 ED course: plan to get evaluation of cspine with mri, pt declined to wait for exam to gs be performed.. Administered Medications: 15:30 Drug: HYDROcodone-acetaminophen 10 mg-325 mg 1 tabs Route: PO; aa5 16:10 Follow up: Response: No adverse reaction aa5 Disposition: 08/21/17 16:41 Discharged to Home. Impression: Other chronic postprocedural pain. - Condition is Stable. - Discharge Instructions: Chronic Pain. - Medication Reconciliation Form, Thank You Letter, Antibiotic Education, Prescription Opioid Use form. - Follow up: Private Physician; When: 1 - 2 days; Reason: Re-evaluation by your physician. Signatures: Dispatcher [employer] EDWA Niurka Bee RN RN aa Horace Duffy RN RN Darron Santiago MD MD Corrections: (The following items were deleted from the chart) 16:40 16:28 08/21/2017 16:28 Patient left the facility after being seen by provider. Reason gs stated they are leaving due to unknown. aa5 16:41 16:41 08/21/2017 16:41 Discharged to Home. Impression: Other chronic postprocedural gs pain. Condition is Stable. Forms are Medication Reconciliation Form, Thank You Letter, Antibiotic Education, Prescription Opioid Use. Follow up: Private Physician; When: 1 - 2 days; Reason: Re-evaluation by your physician.
--- NOTE | 2017-08-21 16:29 | ER ---
Nurse's Notes [facility] Name: Dior Rao Age: 72 yrs Sex: Female : 1945 Arrival Date: 08/21/2017 Time: 13:51 Bed 20 Private MD: Kendall Kahn Diagnosis: Other chronic postprocedural pain Presentation: 08/21 13:58 Presenting complaint: Patient states: a month ago, i broke my C2, due to seizure and hj fall, pain right now is getting worse and the pain meds is not working now and she is staggering to the R side; we called our orthopedic doc and was told to come to the ER; denies numbness and tingling;. Transition of care: patient was not received from another setting of care. Onset of symptoms was August 21, 2017. Risk Assessment: Do you want to hurt yourself or someone else? Patient reports no desire to harm self or others. Initial Sepsis Screen: Does the patient meet any 2 criteria? No. Patient's initial sepsis screen is negative. Does the patient have a suspected source of infection? No. Patient's initial sepsis screen is negative. Care prior to arrival: None. 13:58 Method Of Arrival: Ambulatory 13:58 Acuity: JAMAR 4 hj Triage Assessment: 14:03 General: Appears in no apparent distress. uncomfortable, Behavior is calm, cooperative, hj appropriate for age. Pain: Complains of pain in neck Pain currently is 10 out of 10 on a pain scale. Historical: - Allergies: 14:02 Codeine; hj 14:02 Demerol; hj 14:02 Fentanyl; hj 14:02 Morphine; hj 14:02 PENICILLINS; hj 14:02 Phenergan; hj - Home Meds: 14:02 amlodipine 10 mg tab 1 tab once daily [Active]; Creon 36,000-114,000- 180,000 unit Oral hj cpDR 1 cap 3 times per day [Active]; folic acid 1 mg Oral tab once daily [Active]; hydroxychloroquine 200 mg Oral tab 2 times per day [Active]; Keppra 750 mg Oral tab 1 tab 2 times per day [Active]; methotrexate sodium 25 mg/mL injection soln 0.4 mL once wkly [Active]; [place] 7.5-325 mg Oral tab 1 tab every 6 hours for Pain [Active]; pantoprazole 40 mg Oral TbEC 1 tab once daily [Active]; prednisone 1 mg Oral tab 2 tabs once daily [Active]; Restoril Oral nightly [Active]; valsartan 40 mg Oral tab once daily [Active]; Vimpat 100 mg Oral tab 1 tab 2 times per day [Active]; Xanax Oral 1 tab AT NIGHT for Anxiety [Active]; - PMHx: 14:02 Anemia; Lupus; osteoarthritis; Pancreatitis; Pneumonia; raynaud disease; scardoma; hj Seizures; status epilepticus; - PSHx: 14:02 None; hj 15:04 abd sx (Pancreas removed, partial removal of stomach); aa5 - Immunization history:: Adult Immunizations up to date. - Social history:: Smoking status: Patient/guardian denies using tobacco, Patient/guardian denies using alcohol. - Ebola Screening: : Patient negative for fever greater than or equal to 101.5 degrees Fahrenheit, and additional compatible Ebola Virus Disease symptoms Patient denies exposure to infectious person Patient denies travel to an Ebola-affected area in the 21 days before illness onset. Screenin:02 Abuse screen: Denies threats or abuse. Denies injuries from another. Nutritional hj screening: No deficits noted. Tuberculosis screening: No symptoms or risk factors identified. Fall Risk None identified. Assessment: 14:05 Neuro: Level of Consciousness is awake, alert, obeys commands, Oriented to person, hj place, time, situation, Appropriate for age. 14:45 General: Appears uncomfortable, Behavior is calm, cooperative. Pain: Complains of pain aa5 in back of neck Pain does not radiate. Pain currently is 8 out of 10 on a pain scale. Quality of pain is described as sharp, squeezing, Pain began approximately 1 month ago. Is continuous. Neuro: Level of Consciousness is awake, alert, obeys commands, Oriented to person, place, time, situation. Cardiovascular: Heart tones S1 S2 present Rhythm is regular. Respiratory: Airway is patent Respiratory effort is even, unlabored, Respiratory pattern is regular, symmetrical. GI: No signs and/or symptoms were reported involving the gastrointestinal system. : No signs and/or symptoms were reported regarding the genitourinary system. EENT: No signs and/or symptoms were reported regarding the EENT system. Derm: Skin is pink, warm \\T\\ dry. Musculoskeletal: Range of motion: intact in all extremities, C-collar in place. 15:30 Reassessment: Patient and/or family updated on plan of care and expected duration. Pain aa5 level reassessed. Patient is alert, oriented x 3, equal unlabored respirations, skin warm/dry/pink. Pain: Pain currently is 8 out of 10 on a pain scale. 16:10 Reassessment: Patient is alert, oriented x 3, equal unlabored respirations, skin aa5 warm/dry/pink. Patient states symptoms have not improved. Pain: Pain currently is 8 out of 10 on a pain scale. 16:12 Reassessment: Pt states "I just want to leave now", MD was notified, MD to bedside now. aa5 Vital Signs: 14:03 BP 184 / 92; Pulse 94; Resp 18; Temp 98.2(O); Pulse Ox 99% on R/A; Weight 44.45 kg; hj Height 5 ft. 0 in. (152.40 cm); Pain 10/10; 14:03 Body Mass Index 19.14 (44.45 kg, 152.40 cm) hj ED Course: 13:51 Patient arrived in ED. sb2 13:51 Kendall Kahn DO is Private Physician. sb2 14:01 Triage completed. hj 14:03 Arm band placed on right wrist. hj 14:03 Patient has correct armband on for positive identification. Bed in low position. Call hj light in reach. Side rails up X 1. Adult w/ patient. 14:13 Niurka Bee, SUMANTH is Primary Nurse. aa5 14:13 Erma Shin FNP-C is PHCP. snw 14:13 Darron Santiago MD is Attending Physician. snw 14:20 Darron Santiago MD is Attending Physician. gs 16:15 No provider procedures requiring assistance completed. Patient did not have IV access aa5 during this emergency room visit. Administered Medications: 15:30 Drug: HYDROcodone-acetaminophen 10 mg-325 mg 1 tabs Route: PO; aa5 16:10 Follow up: Response: No adverse reaction aa5 Outcome: 16:14 Eloped from patient exam room, after seeing physician aa5 16:15 Patient left the ED. aa5 16:41 Discharge ordered by MD. gs 16:41 Patient left the ED. Signatures: Erma Shin, PRESS OPERATOR-C PRESS OPERATOR-Csnw Niurka Bee RN RN aa5 Horace Duffy RN RN Darron Farley MD MD Nikki De Los Santos sb2 Corrections: (The following items were deleted from the chart) 14:06 14:03 Pulse 94bpm; Resp 18bpm; Pulse Ox 99% RA; Temp 98.2F Oral; 44.45 kg; Height 5 ft. hj 0 in.; BMI: 19.1; Pain 10/10; hj 15:24 14:45 Pain: Complains of pain in back of neck Pain does not radiate. Pain currently is aa5 8 out of 10 on a pain scale. Quality of pain is described as sharp, squeezing, Pain began Is continuous, aa5 16:29 16:28 Patient left the ED. aa5 aa5
[2017-08-21 16:32] VITALS: BP 184/92; TEMP 98.2; O2SAT 99
== END 2017-08-21 16:41 | disposition home or self-care (01) ==
LOC: ER 13:47
DX: G89.28 Other chronic postprocedural pain (principal); M54.2 Cervicalgia; Z88.5 Allergy status to narcotic agent; Z88.0 Allergy status to penicillin; Z88.8 Allergy status to other drugs, medicaments and biological substances; M32.9 Systemic lupus erythematosus, unspecified; I73.00 Raynaud's syndrome without gangrene; G40.901 Epilepsy, unspecified, not intractable, with status epilepticus
CPT/HCPCS: 99282

== ENCOUNTER 2017-09-19 03:59 | Emergency (ER) | payer OTHER ==
--- OUTSIDE RECORDS SUMMARY | 2017-09-19 04:01 | XMS REPORT ---
[...] End Status Dosage System Date Date Creon [facility] 29827201585 6000 UNIT Active not Orally defined Zofran ND 30128879223 4 MG Orally Active not defined Alprazolam ND 49691155655 1 MG Orally Active 1 tablet Twice a day Ziac ND 92058015278 5-6.25 MG Active 1 tablet Orally Once a day Viberzi ND 48403770843 75 MG Orally Active 1 tablet Twice a day with food Zoloft ND 27382056031 100 MG Orally Active 1 tablet Once a day Zanaflex ND 65411776433 4 MG Orally Active 1 tablet Three times a as needed day Creon 5 NDC 0 Active not defined [place] [facility] 76050823444 10-325 MG Active 1 tablet Orally every 6 as needed hrs Doxycycline [facility] 88266347497 100 MG Orally Active 1 tablet Hyclate every 12 hrs Oxcarbazepine ND 65293228587 600 MG Orally Active 1 tablet Twice a day Keppra [facility] 29465001995 750 MG Orally Active 1 tablet Twice a day Folic Acid ND 56121172129 1 MG Orally Active 1 tablet Once a day Restoril ND 34132530583 30 MG Orally Active 1 capsule Once a day at bedtime as needed Anacin [facility] 05518794057 400-32 MG Active not Orally defined Trileptal [facility] 59111651820 600 MG Orally Active 1 tablet Twice a day Neurontin ND 95470744614 300 MG Orally Active 1 capsule Once a day before bedtime Diovan HCT [facility] 03592495068 80-12.5 MG Inactive 1 tablet Orally Once a day Amlodipine ND 89093484983 10 MG Orally Active 1 tablet Besylate Once a day Protonix [facility] 69182775410 20 MG Orally Active 1 tablet Once a day Ultram [facility] 67972388443 50 MG Orally Active 1 tablet every 6 hrs as needed Plaquenil ND 21269026233 200 MG Orally Active 1 tablet Once a day with food or milk Reglan [facility] 67132511955 5 MG Orally Active not defined Vimpat [facility] 14159997899 50 MG Orally Active 1 tablet Twice a day Methotrexate ND 22337597697 2.5 MG Orally Active not defined Results No Known Results Summary Purpose eClinicalWorks Submission
--- OUTSIDE RECORDS SUMMARY | 2017-09-19 04:02 | XMS REPORT ---
[...] End Status Dosage System Date Date Creon [facility] 82630552259 6000 UNIT Active not Orally defined Anacin [facility] 80034990424 400-32 MG Active not Orally defined Restoril ND 31133298021 30 MG Orally Active 1 capsule Once a day at bedtime as needed Alprazolam ND 22984799459 1 MG Orally Active 1 tablet Twice a day Vimpat ND 50843036358 50 MG Orally Active 1 tablet Twice a day Bactrim DS ND 52102944135 800-160 MG July 26August Active 1 tablet Orally Twice a 2017 Ziac ND 23815938170 5-6.25 MG Active 1 tablet Orally Once a day Ultram ND 55777825890 50 MG Orally Active 1 tablet every 6 hrs as needed Doxycycline ND 03891126794 100 MG Orally Active 1 tablet Hyclate every 12 hrs Reglan ND 95550224414 5 MG Orally Active not defined Neurontin ND 60075738189 300 MG Orally Active 1 capsule Once a day before bedtime [place] [facility] 44736369555 10-325 MG Active 1 tablet Orally every 6 as needed hrs Doxycycline ND 43345481055 100 MG Orally July 26August Active 1 capsule Monohydrate Twice a day 2017 Keppra [facility] 62330695942 750 MG Orally Active 1 tablet Twice a day Creon 5 ND 0 Active not defined Zofran [facility] 84831936980 4 MG Orally Active not defined Amlodipine [facility] 01414447957 10 MG Orally Active 1 tablet Besylate Once a day Viberzi [facility] 19710415337 75 MG Orally Active 1 tablet Twice a day with food Zoloft [facility] 40521208989 100 MG Orally Active 1 tablet Once a day Folic Acid [facility] 65427834718 1 MG Orally Active 1 tablet Once a day Oxcarbazepine [facility] 10291838893 600 MG Orally Active 1 tablet Twice a day Plaquenil [facility] 14027199565 200 MG Orally Active 1 tablet Once a day with food or milk Zanaflex [facility] 33626956942 4 MG Orally Active 1 tablet Three times a as needed day Protonix [facility] 92739114326 20 MG Orally Active 1 tablet Once a day Methotrexate [facility] 29259908318 2.5 MG Orally Active not defined Results No Known Results Summary Purpose eClinicalWorks Submission
--- OUTSIDE RECORDS SUMMARY | 2017-09-19 04:02 | XMS REPORT ---
[...] Status Dosage System Date Date Amlodipine ND 75672379441 10 MG Orally Active 1 tablet Besylate Once a day Zoloft ND 94515575775 100 MG Orally Active 1 tablet Once a day Alprazolam ND 62158499083 1 MG Orally Active 1 tablet Twice a day Creon ND 57561628041 6000 UNIT Active not Orally defined Ultram ND 58771976945 50 MG Orally Active 1 tablet every 6 hrs as needed Methotrexate ND 42136365505 2.5 MG Orally Active not defined Neurontin ND 79042791527 300 MG Orally Active 1 capsule Once a day before bedtime Viberzi [facility] 56966479156 75 MG Orally Active 1 tablet Twice a day with food Anacin [facility] 37637039807 400-32 MG Active not Orally defined Plaquenil ND 58437095877 200 MG Orally Active 1 tablet Once a day with food or milk Zofran [facility] 47807191742 4 MG Orally Active not defined Oxcarbazepine ND 98674719736 600 MG Orally Active 1 tablet Twice a day Keppra ND 13082823199 750 MG Orally Active 1 tablet Twice a day Zanaflex ND 63333895080 4 MG Orally Active 1 tablet Three times a as needed day Protonix [facility] 07979744704 20 MG Orally Active 1 tablet Once a day Ziac [facility] 45256402917 5-6.25 MG Active 1 tablet Orally Once a day Restoril ND 36233354018 30 MG Orally Active 1 capsule Once a day at bedtime as needed Folic Acid ND 68336451336 1 MG Orally Active 1 tablet Once a day Vimpat ND 29050015402 50 MG Orally Active 1 tablet Twice a day Creon 5 NDC 0 Active not defined Doxycycline [facility] 81802769048 100 MG Orally Active 1 tablet Hyclate every [address] [facility] 68705814132 5 MG Orally Active not defined [place] [facility] 30833174045 10-325 MG Active 1 tablet Orally every 6 as needed hrs Results No Known Results Summary Purpose eClinicalWorks Submission
--- OUTSIDE RECORDS SUMMARY | 2017-09-19 04:02 | XMS REPORT ---
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 disc Problem Chronic back pain M54.9 Active Problem Hypertension I10 Active Problem 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) Assessment Closed nondisplaced fracture of S12.101K Active second cervical vertebra with nonunion, unspecified fracture morphology, subsequent encounter Assessment 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) Problem Closed nondisplaced fracture of S12.101K Active second cervical vertebra with nonunion, unspecified fracture morphology, subsequent encounter Assessment CREST syndrome M34.1 Active Problem Chronic pancreatitis K86.1 Active Problem Seizures R56.9 Active Problem Rheumatoid arthritis M06.9 Active Problem Insomnia G47.00 Active Problem CREST syndrome M34.1 Active Assessment Anemia, chronic disease D63.8 Active Assessment Hypertension I10 Active Problem Osteoarthritis of multiple joints M15.9 Active Problem Anxiety and depression F41.9 Active Problem Malabsorption syndrome K90.9 Active Problem Rotator cuff tear arthropathy M12.819 Active Medications Medication Code Code Instructions Start End Status Dosage System Date Date Metoprolol NDC 84220604088 25 MG Orally Sep 17, Active 1 tablet Tartrate Once a day PRN 2018 with food Vimpat ND 70473712199 50 MG Orally Active 1 tablet Twice a day [place] ND 52621692737 10-325 MG Active 1 tablet Orally every 6 as needed hrs Viberzi ND 98546772905 75 MG Orally Active 1 tablet Twice a day with food Methotrexate ND 55158929361 2.5 MG Orally Active not defined Protonix [facility] 78739816712 20 MG Orally Active 1 tablet Once a day Anacin [facility] 14402816508 400-32 MG Active not Orally defined Amlodipine ND 03566202535 10 MG Orally Active 1 tablet Besylate Once a day Neurontin ND 38667217884 300 MG Orally Active 1 capsule Once a day before bedtime Oxcarbazepine ND 02468245480 600 MG Orally Active 1 tablet Twice a day Restoril ND 32640585082 30 MG Orally Active 1 capsule Once a day at bedtime as needed Ultram [facility] 87791550810 50 MG Orally Active 1 tablet every 6 hrs as needed Reglan [facility] 79217722769 5 MG Orally Active not defined Creon [facility] 44891429286 6000 UNIT Active not Orally defined Creon 5 ND 0 Active not defined Folic Acid [facility] 53446745056 1 MG Orally Active 1 tablet Once a day Zanaflex [facility] 23502271920 4 MG Orally Active 1 tablet Three times a as needed day Zoloft [facility] 72032246147 100 MG Orally Active 1 tablet Once a day Zofran [facility] 67977170108 4 MG Orally Active not defined Keppra [facility] 60020904421 750 MG Orally Active 1 tablet Twice a day Ziac [facility] 99728313457 5-6.25 MG Active 1 tablet Orally Once a day Plaquenil ND 22006687964 200 MG Orally Active 1 tablet Once a day with food or milk Alprazolam ND 61224664384 1 MG Orally Active 1 tablet Twice a day Results No Known Results Summary Purpose eClinicalWorks Submission
[2017-09-19 04:48] LABS: Absolute Lymphocytes (CBC) 2.7 K/uL (0.7-4.9); Absolute Monocytes 0.4 K/uL (0.1-1.3); Absolute Neutrophil 15.5 K/uL (1.8-8.0); Basophils % 0.7 % (0-1.3); Eosinophils % 1.4 % (0-4.4); Hematocrit 34.1 % (36.0-45.0); Lymphocytes % 14.2 % (15.3-44.8); MCH 32.6 pg (27.0-35.0); MCV 106.6 fL (80-100); MPV 9.2 fL (7.6-11.3)
--- NOTE | 2017-09-19 04:49 | ER ---
Nurse's Notes [facility] Name: Dior Rao Age: 72 yrs Sex: Female : 1945 Arrival Date: 09/19/2017 Time: 04:01 Bed 2 Private MD: Diagnosis: S/P CPR. DNR Presentation: 09/19 04:00 Presenting complaint: EMS states: FOUND DOWN AT HOME BY PD RESPONSE TO 911. 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 PT GIVEN EPI x4, ETT PLACED, 7.0 \T\ 26CM, L TIB IO PLACED. BGL 286 ON ARRIVAL. PUPILS FIXED AND DILATED. PER EMS, PT MAY BE DNR. Care prior to arrival: Assisted ventilation, Oral intubation, CPR via thumper performed by EMS Medication(s) given: LEFT TIB IO. Compressions began prior to arrival. 04:00 Method Of Arrival: EMS: [facility] bp 04:00 Acuity: JAMAR 1 bp Historical: - Allergies: 04:40 Codeine; ak1 04:40 Demerol; ak1 04:40 Fentanyl; ak1 04:40 Morphine; ak1 04:40 PENICILLINS; ak1 04:40 Phenergan; ak1 - Home Meds: 04:40 amlodipine 10 mg tab 1 tab once daily [Active]; Creon 36,000-114,000- 180,000 unit Oral ak1 cpDR 1 cap 3 times per day [Active]; folic acid 1 mg Oral tab once daily [Active]; hydroxychloroquine 200 mg Oral tab 2 times per day [Active]; Keppra 750 mg Oral tab 1 tab 2 times per day [Active]; methotrexate sodium 25 mg/mL injection soln 0.4 mL once wkly [Active]; [place] 7.5-325 mg Oral tab 1 tab every 6 hours for Pain [Active]; pantoprazole 40 mg Oral TbEC 1 tab once daily [Active]; prednisone 1 mg Oral tab 2 tabs once daily [Active]; Restoril Oral nightly [Active]; valsartan 40 mg Oral tab once daily [Active]; Vimpat 100 mg Oral tab 1 tab 2 times per day [Active]; Xanax Oral 1 tab AT NIGHT for Anxiety [Active]; - PMHx: 04:40 Anemia; Lupus; osteoarthritis; Pancreatitis; Pneumonia; raynaud disease; scardoma; ak1 Seizures; status epilepticus; Screenin:00 Abuse screen: Denies threats or abuse. Denies injuries from another. bp 04:00 Nutritional screening: No deficits noted. Tuberculosis screening: No symptoms or risk bp factors identified. 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 Cardiac rhythm is SINUS RHYTHM. General: Appears distressed, bp comfortable, slender, Behavior is unresponsive. Neuro: Level of Consciousness is unresponsive, Oriented to none Pupils are fixed, dilated. EENT: VOMITUS NOTED IN AIRWAY. Cardiovascular: Rhythm is sinus rhythm. Respiratory: Airway via oral intubation Respiratory effort is VENTILATED. GI: No signs and/or symptoms were reported involving the gastrointestinal system. : No signs and/or symptoms were reported regarding the genitourinary system. Derm: No deficits noted. Musculoskeletal: UNRESPONSIVE/FLACCID. 04:00 Pain: Unable to use pain scale. Patient is unresponsive. bp 04:20 Reassessment: FAMILY AT B/S. PER FAMILY, PT IS DNR/DNI. FURTHER RESUSCITATION DECLINED bp BY FAMILY. 04:50 Reassessment: TIME OF BY DR EBONY LORA. bp 05:25 Reassessment: PER TED VALENZUELA AT [facility], PT NOT A CANDIDATE, REF # [id number]. bp Vital Signs: 04:00 BP 52 / 40; Pulse 47; Resp 14; Temp 97.1; Pulse Ox 90% ; Weight 49.9 kg; bp 04:20 BP 52 / 33; Pulse 63; Resp 14; Temp 96.4; Pulse Ox 63% ; bp 04:30 Pulse 52; Resp 14; Temp 97; bp 04:45 Pulse 29; Resp 14; Temp 96.9; bp 04:50 Temp 96.1; bp 04:50 TIME OF bp ED Course: 04:00 Patient has correct armband on for positive identification. Placed in gown. Bed in low bp position. Call light in reach. Side rails up X2. Maintain EMS IV. Dressing intact. Site clean \T\ dry. Gauge \T\ site: LEFT TIBIAL IO. 04:00 Patient has correct armband on for positive identification. Placed in gown. Bed in low ak1 position. Call light in reach. Side rails up X2. night monitor on. Pulse ox on. NIBP on. 04:01 Patient arrived in ED. rg2 04:03 Ebony Lora MD is Attending Physician. rg2 04:03 Inserted saline lock: 18 gauge in left ,using aseptic technique. ANKLE bp 04:07 Serrano cath inserted, using sterile technique, 18 Fr., by grain broker and market operator, balloon inflated, to bp gravity drainage. NGT: inserted 14 Fr. other ORAL verified placement of air over stomach, Placement verified by X-ray. 04:10 Inserted saline lock: 22 gauge in left forearm, using aseptic technique. bp 04:19 X-ray completed. Portable x-ray completed in exam room. Patient tolerated procedure kw well. 04:20 XRAY Chest (1 view) In Process Unspecified. EDMS 04:30 Vandana Gross, SUMANTH is Primary Nurse. ak1 04:34 Triage completed. ak1 04:47 Bishop Hills MD is Hospitalizing Provider. pkl 04:[address] FOR ARRIVAL OF WERO. bp 04:50 No provider procedures requiring assistance completed. bp 04:54 Ebony Lora MD is Pronouncing Provider. pkl Administered Medications: No medications were administered Outcome: 04:49 Decision to Hospitalize by Provider. pkl 07:10 Patient : Time of 04:50 Body to home. sv 07:10 Condition: 07:24 Patient left the ED. sv Signatures: Dispatcher [employer] EDMS Jair Mane rg2 Miriam Childs RN RN sv Lam, Pin, MD MD pkl Dori Crawford Vandana Gross RN RN akMiguel Rodriguez RN RN bp Corrections: (The following items were deleted from the chart) 04:43 04:00 BP 52 / 33; Pulse 63bpm; Resp 14bpm; Pulse Ox 63%; Temp 96.4F; ak1 ak1 05:12 04:00 Presenting complaint: EMS states: FOUND DOWN AT HOME BY PD RESPONSE TO 911. 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 PT GIVEN EPI x4, ETT PLACED, 7.0 \T\ 26CM, L TIB IO PLACED. BGL 286 ON ARRIVAL. PUPILS FIXED AND DILATED. PER EMS, PT MAY BE DNR ak1 05:13 04:00 Care prior to arrival: Assisted ventilation, Oral intubation, CPR via thumper bp performed by EMS Medication(s) given: LEFT TIB IO ak1 : 04:00 Compressions began prior to arrival. 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 ak1 bp : 04:00 Neuro: Level of Consciousness is unresponsive, Oriented to none Pupils are fixed, bp dilated, ak1 04:00 EENT: VOMITUS NOTED IN AIRWAY. ak1 bp : 04:00 Cardiovascular: Rhythm is sinus rhythm ak1 bp 04:00 Respiratory: Airway via oral intubation Respiratory effort is VENTILATED ak1 bp : 04:00 GI: No signs and/or symptoms were reported involving the gastrointestinal system. bp ak1 : 04:00 : No signs and/or symptoms were reported regarding the genitourinary system. ak1bp 04:00 Derm: No deficits noted. ak1 bp : 04:00 Musculoskeletal: UNRESPONSIVE/FLACCID ak1 bp : 04:20 Reassessment: FAMILY AT B/S. PER FAMILY, PT IS DNR/DNI. FURTHER RESUSCITATION bp DECLINED BY FAMILY. ak1 : 04:50 Reassessment: TIME OF BY DR EBONY LORA ak1 bp : 04:00 Pain: Unable to use pain scale. Patient is unresponsive. ak1 bp 05:15 04:00 BP 52 / 40; Pulse 47bpm; Resp 14bpm; Pulse Ox 90%; Temp 97.1F; 49.9 kg; ak1 bp 05:15 04:20 BP 52 / 33; Pulse 63bpm; Resp 14bpm; Pulse Ox 63%; Temp 96.4F; ak1 bp 05:15 04:50 Temp 96.1F; TIME OF ; ak1 bp 05: 04:30 Pulse 52bpm; Resp 14bpm; Temp 97F; ak1 bp 05:15 04:45 Pulse 29bpm; Resp 14bpm; Temp 96.9F; ak1 bp 05:15 04:00 Abuse screen: Denies threats or abuse. Denies injuries from another. ak1 bp 05:15 04:00 Nutritional screening: No deficits noted. ak1 bp 05:15 04:00 Tuberculosis screening: No symptoms or risk factors identified. ak1 bp 05:16 04:00 Patient has correct armband on for positive identification. Placed in gown. Bed bp in low position. Call light in reach. Side rails up X2. ak1 05:16 04:00 Maintain EMS IV. Dressing intact. Site clean \T\ dry. Gauge \T\ site: LEFT TIBIAL IO. bp ak1 05:16 04:10 Inserted saline lock: 22 gauge in left forearm, using aseptic technique. ak1 bp 05:16 04:03 Inserted saline lock: 18 gauge in left ,using aseptic technique. ANKLE ak1 bp 05:16 04:[address] FOR ARRIVAL OF WERO ak1 bp 05:16 04:50 No provider procedures requiring assistance completed. ak1 bp 05:16 04:07 Serrano cath inserted, using sterile technique, 18 Fr., by grain broker and market operator, balloon bp inflated, to gravity drainage, ak1 05:16 04:07 NGT: inserted 14 Fr. other ORAL verified placement of air over stomach, Placement bp verified by X-ray, ak1
--- NOTE | 2017-09-19 04:49 | EDPHYS ---
Physician Documentation [facility] Name: Dior Rao Age: 72 yrs Sex: Female : 1945 Arrival Date: 09/19/2017 Time: 04:01 Bed 2 Private MD: ED Physician Junito Quan HPI: 09/19 04:40 This 72 yrs old Female presents to ER via EMS with complaints of CPR - ROSC. pkl 04:40 Preceding the arrest, the patient collapsed. The arrest occurred at home. Pre-hospital pkl course: The arrest was witnessed Bystanders at the scene did not perform CPR. EMS care prior to arrival: initiation of ACLS. Patient arrived at ER , intubated and had a pulse.. Talked to , said patient is DNR.. Historical: - Allergies: 04:40 Codeine; ak1 04:40 Demerol; ak1 04:40 Fentanyl; ak1 04:40 Morphine; ak1 04:40 PENICILLINS; ak1 04:40 Phenergan; ak1 - Home Meds: 04:40 amlodipine 10 mg tab 1 tab once daily [Active]; Creon 36,000-114,000- 180,000 unit Oral ak1 cpDR 1 cap 3 times per day [Active]; folic acid 1 mg Oral tab once daily [Active]; hydroxychloroquine 200 mg Oral tab 2 times per day [Active]; Keppra 750 mg Oral tab 1 tab 2 times per day [Active]; methotrexate sodium 25 mg/mL injection soln 0.4 mL once wkly [Active]; [place] 7.5-325 mg Oral tab 1 tab every 6 hours for Pain [Active]; pantoprazole 40 mg Oral TbEC 1 tab once daily [Active]; prednisone 1 mg Oral tab 2 tabs once daily [Active]; Restoril Oral nightly [Active]; valsartan 40 mg Oral tab once daily [Active]; Vimpat 100 mg Oral tab 1 tab 2 times per day [Active]; Xanax Oral 1 tab AT NIGHT for Anxiety [Active]; - PMHx: 04:40 Anemia; Lupus; osteoarthritis; Pancreatitis; Pneumonia; raynaud disease; scardoma; ak1 Seizures; status epilepticus; ROS: 04:40 Unable to obtain ROS due to comatose state. pkl Exam: 04:40 Head/Face: Normocephalic, atraumatic. pkl 04:40 Eyes: Pupils: are fixed and dilated. 04:40 ENT: Exam is negative for acute changes. 04:40 Neck: Exam negative for nuchal rigidity. 04:40 Chest/axilla: Exam negative for acute changes. 04:40 Cardiovascular: Rate: normal, Rhythm: regular. 04:40 ECG was reviewed by the Attending Physician. 04:40 Respiratory: Patient on ventilator. 04:40 Abdomen/GI: Bowel sounds: normal, Palpation: abdomen is soft and non-tender, in all quadrants. 04:40 Back: Exam negative for acute changes. 04:40 : Exam negative for acute changes. 04:40 Musculoskeletal/extremity: Exam is negative for acute changes. 04:40 Skin: Exam negative for rash. 04:40 Neuro: Cranial nerves: unable to test, the patient is comatose, Motor: unable to test, the patient is comatose. Vital Signs: 04:00 BP 52 / 40; Pulse 47; Resp 14; Temp 97.1; Pulse Ox 90% ; Weight 49.9 kg; bp 04:20 BP 52 / 33; Pulse 63; Resp 14; Temp 96.4; Pulse Ox 63% ; bp 04:30 Pulse 52; Resp 14; Temp 97; bp 04:45 Pulse 29; Resp 14; Temp 96.9; bp 04:50 Temp 96.1; bp 04:50 TIME OF bp MDM: 04:40 Data reviewed: vital signs, nurses notes, lab test result(s), radiologic studies, plain pkl films. ED course: Talked to Dr. Hills, admit to ICU. 04:49 Patient medically screened. pkl 09/19 04:02 Order name: Basic Metabolic Panel [facility] 09/19 04:02 Order name: CBC with Diff [facility] 09/19 04:02 Order name: Ckmb [facility] 09/19 04:02 Order name: CPK [facility] 09/19 04:02 Order name: LFT's [facility] 09/19 04:02 Order name: Magnesium [facility] 09/19 04:02 Order name: NT PRO-BNP [facility] 09/19 04:02 Order name: PT-INR [facility] 09/19 04:02 Order name: Ptt, Activated [facility] 09/19 04:02 Order name: Troponin (emerg Dept Use Only) [facility] 09/19 04:02 Order name: XRAY Chest (1 view) [facility] 09/19 04:02 Order name: EKG; Complete Time: 04:03 [facility] 09/19 04:36 Order name: NPO [facility] 09/19 05:23 Order name: NT PRO-BNP [facility] 09/19 04:02 Order name: Cardiac monitoring; Complete Time: 05:11 [facility] 09/19 04:02 Order name: EKG - Nurse/Tech; Complete Time: 05:11 [facility] 09/19 04:02 Order name: IV Saline Lock; Complete Time: 05:11 [facility] 09/19 04:02 Order name: Labs collected and sent; Complete Time: 05:11 [facility] 09/19 04:02 Order name: O2 Per Protocol; Complete Time: 05:11 [facility] 09/19 04:02 Order name: O2 Sat Monitoring; Complete Time: 05:11 [facility] Administered Medications: No medications were administered Disposition: 04:54 . pkl Disposition: Patient pronounced on 09/19/17 04:50 by Junito Quan. Impression: S/P CPR. DNR. - Released to Home. Signatures: Dispatcher [employer] [facility] Jair Mane 2 Miriam Childs RN RN sv Lam, Pin, MD MD pkl Vandana Gross RN RN ak1 Corrections: (The following items were deleted from the chart) 04:53 04:49 Hospitalization Ordered by Bishop Hills MD for Observation. Preliminary pkl diagnosis is S/P CPR. DNR. Bed requested for Intensive Care Unit. Status is Observation. Condition is Critical. Problem is new. Symptoms are unchanged. UTI on Admission? No. pkl 07:24 04:57 09/19/2017 04:57 Patient pronounced on 09/19/2017 at 04:50 by Junito Quan. anali Impression: S/P CPR. DNR. Released to Home. pkl
[2017-09-19 04:50] LABS: Protime INR 1.13
[2017-09-19] MEDS ORDERED: NA CHLORIDE 0.9% 1,000 ML IV SCH (05:00)
[2017-09-19 05:20] LABS: Albumin 2.6 g/dL (3.4-5.0); Alkaline Phosphatase 173 U/L (45-117); BUN Blood Urea Nitrogen 24 mg/dL (7-18); Bicarbonate 17 mmol/L (21-32); Bilirubin Direct < 0.1 mg/dL (0-0.2); Bilirubin Total 0.2 mg/dL (0.2-1.0); Creatine Phosphokinase 696 U/L (26-192); Glucose Level 253 mg/dL (74-106); NT PRO-BNP 1408 pg/mL (<125); Potassium 5.2 mmol/L (3.5-5.1); Protein, Total 5.2 g/dL (6.4-8.2); Sodium Level 147 mmol/L (136-145)
[2017-09-19 05:23] LABS: ALT/SGPT 1723 U/L (12-78); AST/SGOT 2382 U/L (15-37); CKMB Creatine Kinase MB 50.7 ng/mL (0.3-3.6)
--- NOTE | 2017-09-19 05:45 | RAD REPORT ---
EXAM DESCRIPTION: [place] Single View09/19/2017 4:21 am CLINICAL HISTORY: Shortness of breath COMPARISON: none FINDINGS: An endotracheal tube has its tip 4 centimeters above the michelle. Nasogastric tube is prese nt within the stomach Mild bilateral interstitial lung opacities are present which may indicate mild interstitial pulmonary edema or pneumonitis The heart is normal size
[2017-09-19] MEDS ORDERED: DEXAMETHASONE 10 MG/ML VIAL IV SCH (06:00)
[2017-09-19 07:34] VITALS: BP 52/33; O2SAT 63
[2017-09-19 07:37] VITALS: TEMP 96.1
--- NOTE | 2017-09-19 10:45 | EKG ---
Test Date: 2017-09-19 Test Time: 04:01:48 Finance Controller: ZAIRE MEASUREMENT RESULTS: Intervals: Rate: 72 [place]: 186 QRSD: 140 QT: 504 QTc: 551 [place]: P: 56 [place]: 186 QRS: -83 T: 75 INTERPRETIVE STATEMENTS: Normal sinus rhythm Left axis deviation Right bundle branch block Septal infarct, age undetermined Possible Lateral infarct, age undetermined Inferior infarct, age undetermined Abnormal ECG Compared to ECG 04/14/2017 17:14:49 Left-axis deviation now present Right bundle-branch block now present Myocardial infarct finding now present Electronically Signed On 09-19-17 10:44:32 CDT by Steve Stephens
--- NOTE | 2017-09-21 14:06 | P.CNS ---
Date of Consult: 09/19/17 Reason for Consult: Respiratory failure Requesting Physician: Junito Quan Chief Complaint: altered mental status and respiratory failure History of Present Illness: patient is a 72-year-old female who was admitted in the emergency room as she was CPR in progress. Patient did have a DNR however the EMS were not Aware of this. She was intubated and brought to the hospital. in the emergency room she has been doing very poorly. The does not want to do any aggressive measures. She will be made comfort care and will arrange for hospice and possible withdrawal of care this morning. During my visit in the emergency room patient . Allergies Penicillins Allergy (Mild, Verified 04/13/17 21:44) Rash codeine Allergy (Verified 04/13/17 21:44) Unknown meperidine [From Demerol] Allergy (Unverified 05/07/17 20:36) Unknown morphine Allergy (Verified 04/13/17 21:44) Unknown promethazine HCl [From Phenergan] Adverse Reaction (Severe, Verified 04/13/17 21 :44) Shortness of breath Fentanyl Allergy (Uncoded 04/13/17 21:44) Hives Home Medications: Amlodipine [Norvasc*] 10 mg PO DAILY 03/26/15 Gabapentin [Gralise] 300 mg PO BEDTIME PRN 03/26/15 Hydroxychloroquine [Plaquenil*] 200 mg PO BID 03/26/15 Pantoprazole Sodium [Protonix] 40 mg PO DAILY 03/26/15 Folic Acid 1 mg PO DAILY 01/09/16 Lipase/Protease/Amylase [[place] 36,000 Units Capsule] 3 cap PO ACHS 01/09/16 Temazepam [Restoril] 1 tab PO BEDTIME PRN 01/12/16 Hydrocodone Bit/Acetaminophen [[place] 10-325 Tablet] 1 tab PO QIDP PRN 04/13/17 Methotrexate Sodium/Pf [Methotrexate 25 mg/ml Vial] 0.4 ml SQ Q7D 04/13/17 Valsartan/Hydrochlorothiazide [Valsartan-Hctz 80-12.5 mg Tab] 1 tab PO DAILY 10/23 predniSONE [Prednisone*] 2 mg PO DAILY 04/13/17 Metoprolol Tartrate 12.5 mg PO BID #30 tablet 04/15/17 Oxcarbazepine [Trileptal] 600 mg PO BID #60 tablet 04/15/17 levETIRAcetam [Keppra*] 500 mg PO BID #60 tab 04/15/17 - Past Medical/Surgical History Diabetic: No -: HTN -: Anemia of chronic disease -: Depression with anxiety -: Insomnia -: Chronic back pain with DJD,DDD; Pain management -: Chronic pancreatitis -: History of malabsorption syndrome -: Surgical Menopause -: RA -: Lupus -: WHIPPLE -: BACK SURGERY -: HYSTERECTOMY -: CARPEL TUNNEL -: BILATERAL CATARACT SURGERY AND LENS IMPLANTS -: ALLY -: APPY -: perf'd ulcer with bowel resection x 2 Psychosocial/ Personal History: , 2 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, 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 - Family History Father Medical History: Heart disease Sister Medical History: Other (see notes) Notes: Abdominal anurism - Social History Smoking Status: Unknown if ever smoked Alcohol use: No CD- Drugs: No Caffeine use: No Review of Systems is unable to be obtained Physical Examination Temp Pulse Resp BP Pulse Ox 96.1 F L 29 L 14 52/33 L 09/19/17 04:50 09/19/17 04:45 09/19/17 04:45 09/19/17 04:20 General: Unresponsive HEENT: Other (intubated) Respiratory: Diminished Cardiovascular: Other (no HS) Gastrointestinal: Other Musculoskeletal: No clubbing, No swelling Integumentary: Other (bruising) - Problems (1) Cardiac arrest Status: Acute Conclusions/ Impression: Patient peacefully with her at bedside. Patient was pronounced by the emergency room physician. home was notified and they will be here to picking belt operator Mrs. Rao. Critical Care: No Time Spent Managing Pts care (In Minutes): 50
== END 2017-09-19 07:24 | disposition expired ==
LOC: ER 03:59 → INTOOBSV 04:33 → ERHOLD 04:33 → UNDOADMOB 04:33 → ER 07:24
DX: I46.9 Cardiac arrest, cause unspecified (principal); D64.9 Anemia, unspecified; G40.909 Epilepsy, unspecified, not intractable, without status epilepticus; I73.00 Raynaud's syndrome without gangrene; Z88.0 Allergy status to penicillin; Z88.5 Allergy status to narcotic agent; Z88.8 Allergy status to other drugs, medicaments and biological substances
CPT/HCPCS: 36415; 51702; 71045; 80048; 80076; 82550; 82553; 83735; 83880; 84484; 85025; 85610; 85730; 92950; 93005; 94002; 99291